=== PATIENT | female | born 1985 | race Two or more races ===

== ENCOUNTER 2022-05-08 01:51 | Day surgery (SDC) | payer OTHER, SELFPAY ==
[2022-04-29 11:29] VITALS: BMI 26.1
--- NOTE | 2022-04-29 11:32 | PC.NURSE ---
Report to the Outpatient Waiting Room, entrance under the green pavilion located off [facility], at time 1100 on date 05/08/22. Planned Procedure Time: 1300. Time changes happen often and if your time is changed the preop area will call you the afternoon before. - You and your visitor will be asked to self-screen and do not enter if you have any COVID symptoms. - Only one visitor is requested with a max of two and NO children visitors are allowed at this time. - The patient visitor may be requested to leave or wait in car when not with patient due to distancing restrictions. - A mask is REQUIRED within the hospital. Patients may have clear liquids (water, carbonated beverages, clear teas, apple juice) until 3 hours prior to surgery with a maximum of 20 ounces. - No food from midnight until time of surgery Take the following medications with a SIP of water the morning of surgery: NONE Medications to discontinue per physician: VITAMINS Date to take last dose: 05/04/22 Please no make-up, nail kosovan, hairspray, perfume, deodorant, or body powder the day of surgery. No jewelry (including any body piercings) or valuables the day of surgery, leave them at home. Please take a shower or bath the night before, or the morning of, surgery with an antibacterial soap. Wear comfortable, loose fitting clothing. - Jewelry must be removed prior to entering the operating room. Rings and piercings that are not removed may be cut off. - The hospital will not accept responsibility for valuables. - Please leave all valuables, including medications, at home the day of surgery. If you are going home after surgery, a licensed class c driver must drive you home. - NO public transportation without another adult if you receive anesthesia. - We recommend that an adult stay with you for 24 hours following discharge. - We also recommend that you do not drive, make important decision, drink alcoholic beverages, or take any drugs that were not prescribed by your health care provider for at least 24 hours after your discharge time. Follow any additional instructions given to you from your surgeon. If you or anyone in your household have experienced Covid symptoms in the past week, please notify your surgeon or the nurse liaison at the phone number below for possible testing. Telephone instructions given to PT - ALBINA KUNZ and asked if any additional questions and then verbalized understanding. Patient advised to call surgeon office or pre surgery nurse liaison [phone] if any additional questions.
--- NOTE | 2022-05-07 09:45 | P.PNAN_ITS ---
Anes - Initial Pre Proc Eval Procedure: Operation Date: 05/08/22 13:00 Proposed Procedures p Bilateral Laparoscopic Salpingectomy - Eric Cutler MD Date/Time: 05/07/22 09:45 Surgeon: Eric Cutler MD Pre Op Diagnosis: Desire Sterilization Patient Data Age: 36 Gender: F Height: 1.65 m Weight: 71.21 kg Allergies Allergy/AdvReac Type Severity Reaction Status Date / Time No Known Allergies Allergy Unknown Other Verified 05/08/22 11:27 Home Medications Medication Instructions Recorded Confirmed Type mecobalamin (vitamin B12) 1,000 1,000 mcg PO DAILY 04/29/22 05/08/22 History mcg chewable tablet (B12 Active) norethindrone 1 mg-ethinyl 1 tablet PO DAILY 04/29/22 05/08/22 History estradiol 20 mcg (21)-iron 75 mg (7) tablet (Blisovi Fe 05/08 (28)) Patient hx anesthesia problems: none Family hx anesthesia problems: none Results Review: All pre-operative results and documents have been reviewed as part of the pre- operative evaluation. [facility] Family History Family History Father Hypertension Cerebrovascular accident Social History Social History Smoking status: Never smoker Alcohol intake: never Substance use: never Substance use type: does not use Living arrangements: with family Additional living arrangements comments: spouse Occupation/Education: 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 Gender identity (if verbalized by the patient): Female Sexual Orientation (if Verbalized by the Patient): Straight or Heterosexual Spiritual care concerns: No Anes - Eval Final PreProcedure Day of Procedure 05/07/22 09:45 Patient weight: overweight Heart: regular rate and rhythm Lungs: clear to auscultation Airway: Mallampati scale class II Neurological: alert and oriented Last oral intake: >/= 8 hours ASA classification: I Emergent: no Anesthetic plan: proceed Anesthesia type and monitoring: general ETT and standard monitoring Results Review: All pre-operative results and documents have been reviewed as part of the pre- operative evaluation. Informed Consent: The patient's anesthetic plan and its attendant risks and benefits were discussed with the patient/family/POA. Questions were solicited and answers provided to the satisfaction of the patient/family/POA.
[2022-05-08] VITALS (8 sets, daily range): BP systolic 118–135; BP diastolic 76–95; PULSE 69–107; RESP 14–18; TEMP 36.2–36.7; O2SAT 100
--- NOTE | 2022-05-08 10:05 | PM.IMHP ---
H&P: HPI History of Present Illness Date/Time: 05/08/22 10:05 Chief Complaint: desires sterilization Narrative: 36-year-old 011 who presents laparoscopic bilateral tubal ligation via salpingectomy.? Patient desires permanent sterilization.? Patient currently takes combined oral contraceptive pills.? Patient states her does not desire any children. Review of Systems Cardiovascular: Cardiovascular: Denies chest pain, Denies leg edema, Denies palpitations, Denies dyspnea and Denies dyspnea on exertion Respiratory: Respiratory: Denies cough, Denies dyspnea and Denies dyspnea on exertion Gastrointestinal: Gastrointestinal: Denies abdominal pain, Denies constipation, Denies diarrhea, Denies nausea and Denies vomiting Genitourinary: Genitourinary: Denies hematuria, Denies urinary frequency, Denies dysuria, Denies pelvic pain, Denies urinary incontinence and Denies vaginal discharge Neurologic: Reports system reviewed and no additional complaints, except as documented Psychiatric: Psychiatric: Reports no additional psychiatric complaints Endocrine: Endocrine: Denies palpitations PMFSH Family History Family History Father Hypertension Cerebrovascular accident Social History Social History Smoking status: Never smoker Alcohol intake: never Substance use: never Substance use type: does not use Living arrangements: with family Additional living arrangements comments: spouse Occupation/Education: 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 Gender identity (if verbalized by the patient): Female Sexual Orientation (if Verbalized by the Patient): Straight or Heterosexual Spiritual care concerns: No Meds Home Medications and Allergies Home Medications Medication Instructions Recorded Confirmed Type mecobalamin (vitamin B12) 1,000 1,000 mcg PO DAILY 04/29/22 04/29/22 History mcg chewable tablet (B12 Active) norethindrone 1 mg-ethinyl 1 tablet PO DAILY 04/29/22 04/29/22 History estradiol 20 mcg (21)-iron 75 mg (7) tablet (Blisovi Fe 05/08 ()) Allergies Allergy/AdvReac Type Severity Reaction Status Date / Time No Known Allergies Allergy Unknown Other Verified 04/29/22 11:28 Exam Const: General: no acute distress Eyes: EOM: EOMs intact bilaterally Neck: Neck: supple Thyroid: thyroid normal Chest: Breast/axilla inspection: normal inspection of the breasts Breast/axilla palpation: normal palpation of the breasts, normal palpation of the axillae and no axillary lymphadenopathy Resp: Effort & Inspection: normal respiratory effort Auscultation: clear to auscultation bilaterally Cardio: Rate: regular rate Rhythm: regular rhythm GI: Inspection: non-distended GI Palp: Yes Soft to palpation, No Tenderness to palpation present (GI) and No Guarding due to palpation present (GI) Auscultation: normal bowel sounds : General: No bladder normal to palpation External Female Exam: normal external appearance Speculum Exam - Vagina: normal vaginal discharge and No vaginal bleeding Speculum Exam - Cervix: nontender Bimanual exam- vagina & uterus: No bladder normal to palpation and No Cervical tenderness present OB/external & speculum: No vaginal bleeding Skin: General skin exam: normal color and no rashes or lesions noted Neuro: Cognition (Neuro): normal cognition Speech: normal speech Extrem: General: normal to inspection and no edema Psych: Mental Status: mental status grossly normal Affect: normal affect Assessment and Plan Assessment and plan (1) Encounter for sterilization: Code(s): Z30.2 - Encounter for sterilization Status: Acute Assessment and Plan: 26-year-old female who presents for laparoscopic bilateral tubal ligation for permanent sterilization Risks, benefits, alternatives discussed Patient c
--- NOTE | 2022-05-08 10:07 | WPDHPUPDATE1 ---
History and Physical Update Update Date/Time: 05/08/22 10:07 History and Physical has been reviewed, including an updated exam of the patient. There are NO changes in the patient's condition. Risks, benefits, and alternatives have been discussed and questions answered. Patient agrees to proceed with procedure.
[2022-05-08] MEDS: ACETAMINOPHEN 500 MG TABLET 1000 MG PO (11:40)
[2022-05-08] MEDS: LACTATED RINGERS 1,000 ML 30 ML IV CONT ×2 (11:50→13:49)
[2022-05-08 11:59] LABS: Hemoglobin 9.9 g/dL (12.0-15.0); Mean Corpuscular HGB Conc 30.9 g/dl (32-36); Mean Corpuscular Hemoglobin 26.2 pg (26-34); Mean Corpuscular Volume 84.7 fl (80-100); Mean Platelet Volume 10.2 fl (7.4-10.4); Platelet Count Result 296 k/mm3 (150-375); Red Blood Count 3.78 M/mm3 (4.2-5.4); Red Cell Distribution Width 12.9 % (11.5-14.5); White Blood Count 5.6 K/mm3 (4.5-10.0)
[2022-05-08] MEDS: KETOROLAC 15 MG/ML VIAL (*BKC) IV PUSH (12:15)
[2022-05-08] MEDS: LIDOCAINE HCL 1% PF 30 ML VIAL 15 ML INFILTRATE (13:23)
--- NOTE | 2022-05-08 13:36 | P.OP_ITS ---
Procedure Note - Detailed Date of Procedure 05/08/22 Pre-op Diagnosis Desire Sterilization Post-op Diagnosis Same Procedure Performed laparoscopic bilateral salpingectomy Surgeon Eric Cutler MD Anesthesia General Indications desires permanent sterilization Findings normal appearing uterus, bilateral fallopian tubes and ovaries Description of Procedure the patient was taken to the operating room where general endotracheal anesthesia was undertaken and found to be adequate. She was then prepped and draped in the dorsal lithotomy position. A pre-operative team brief and time- out were completed. A catheter was placed to drain the bladder. Speculum was placed in the vagina and the cervix was identified. An acorn uterine manipulator was placed as well as single-tooth tenaculum on the anterior lip of the cervix. Attention was then turned to the abdomen which was anesthetized umbilical he with injected anesthetic. A 5 mm skin incision was made in the umbilicus. A 5 mm optical trocar was then placed with direct visualization of the abdominal layers during placement. The trocar stylette was removed and the camera was used to verify intra-abdominal placement.sharon was used to verify intra-abdominal placement. CO2 insufflation was then connected and The abdominal cavity was insufflated. General abdominal and pelvic survey was performed. Two other laparoscopic port site incisions were made approximately 2 cm superior and medial of the ASIS bilaterally. Both fallopian tubes were inspected and identified out to the level of the fimbriae. The Fimbriated end of the left fallopian tube was then grasped with a blunt grasper. the fallopian tube was then transected along its inferior aspect along the mesosalpinx with the LigaSure device. Transection was carried out to the fallopian tubes insertion into the uterine fundus. The fallopian tube was then completely transected from the uterus using the LigaSure device. This procedure was repeated for the right fallopian tube. Good hemostasis was maintained throughout. The transected fgh the 5 mm laparoscopic portrom the abdomen through the 5 mm laparoscopic port. The surgical field was inspected and again could hemostasis was noted. At this point the procedure was ended. The abdomen was desufflated. All laparoscopic ports were removed from the abdomen. Abdominal incisions were closed with 4-0 Vicryl in a subcuticular fashion.. The acorn manipulator and tenaculum weere removed from the vagina. The cervix was inspected and good hemostasis was obtained. Sponge, lap and needle counts were correct. The patient tolerated the procedure well. The patient was taken out of dorsal lithotomy. anesthesia was reversed. The patient was taken to PACU in stable condition. Estimated Blood Loss 5 Urine Output 200 Drains No Packing No Pathology Yes ( Bilateral fallopian tubes) Complications No immediate complications Condition Stable Disposition PACU [facility] Billing Surgery - Charge Forward: Surgery Billing
[2022-05-08] MEDS: oxyCODONE HCL (*CRX) 5 MG TAB IR PO (15:07)
== END 2022-05-08 16:02 | disposition home or self-care (01) ==
PROVIDERS: PCP Family Medicine; Visit Provider Student in an Organized Health Care Education/Training Program
PROC: (CPT 49320; principal; 2022-05-08 13:00)
DX: Z30.2 Encounter for sterilization (principal)
CPT/HCPCS: 58661; 36415; 85027; 88302; A9270; J0330; J1100; J1885; J2250; J2405; J2704; J3010; J7120

== ENCOUNTER 2022-08-17 13:17 | Outpatient (CLI) | payer OTHER, SELFPAY ==
[2022-08-17 13:43] LABS: Hematocrit 32.5 % (37.0-47.0); Hemoglobin 9.9 g/dL (12.0-15.0)
== END 2022-08-17 13:18 | disposition home or self-care (01) ==
LOC: ANHSURGERY 13:21
PROVIDERS: PCP Family Medicine; Visit Provider Student in an Organized Health Care Education/Training Program
DX: N93.9 Abnormal uterine and vaginal bleeding, unspecified (principal)
CPT/HCPCS: 36415; 85014; 85018

== ENCOUNTER 2022-08-21 03:01 | Day surgery (SDC) | payer OTHER, SELFPAY ==
--- NOTE | 2022-08-12 15:00 | SUR.PREOP ---
Report to the Outpatient Waiting Room, entrance under the green pavilion located off [facility], at time 0815 on date 08/21/22. Planned Procedure Time: 1015. Time changes happen often and if your time is changed the preop area will call you the afternoon before. - You and your visitor will be asked to self-screen and do not enter if you have any COVID symptoms. - A mask is optional within the hospital at this time. Patients may have clear liquids (water, carbonated beverages, clear teas, apple juice) until 3 hours prior to surgery with a maximum of 20 ounces. - NO CLEAR LIQUIDS AFTER 0715 - No food from midnight until time of surgery - Infants may have breast milk until 4 hours before surgery, infant formula 6 hours prior to surgery. - Children will be allowed to drink immediately following surgery. If applicable, please bring a bottle or sippy cup to assist with drinking. Juice, water, soda, and popsicles are readily available. For infants on formula, please bring formula the day of surgery. Pacifiers are allowed. Take the following medications with a SIP of water the morning of surgery: N/A DO NOT STOP ANY OF YOUR OTHER PRESCRIPTION MEDICATIONS PRIOR TO SURGERY ?EXCEPT THE FOLLOWING Medications to discontinue per physician VITAMIN Y08 Date to take last dose 08/18/22 Please no make-up, nail moldovan, hairspray, perfume, deodorant, or body powder the day of surgery. No jewelry (including any body piercings) or valuables the day of surgery, leave them at home. Please take a shower or bath the night before, or the morning of, surgery with an antibacterial soap. Wear comfortable, loose fitting clothing. Children are encouraged to wear pajamas. - Jewelry must be removed prior to entering the operating room. Rings and piercings that are not removed may be cut off. - The hospital will not accept responsibility for valuables. - Please leave all valuables, including medications, at home the day of surgery. If you are going home after surgery, a licensed transport driver must drive you home. - NO public transportation without another adult if you receive anesthesia. - We recommend that an adult stay with you for 24 hours following discharge. - We also recommend that you do not drive, make important decision, drink alcoholic beverages, or take any drugs that were not prescribed by your health care provider for at least 24 hours after your discharge time. For Pediatric surgeries, we recommend two adults accompany the child home. Follow any additional instructions given to you from your surgeon. If you or anyone in your household have experienced Covid symptoms in the past week, please notify your surgeon or the nurse liaison at the phone number below for possible testing. Telephone instructions given to ALBINA KUNZ and asked if any additional questions and then verbalized understanding. Patient advised to call surgeon office or pre surgery nurse liaison [phone] if any additional questions.
[2022-08-12 15:13] VITALS: BMI 26.2
--- NOTE | 2022-08-20 11:49 | PM.IMHP ---
H&P: HPI History of Present Illness Date/Time: 08/20/22 11:49 Chief Complaint: abnormal uterine bleeding Narrative: ?36-year-old female who presents for hysteroscopy D&C for abnormal uterine bleeding.? Patient states she has started bleeding again.? Patient is worried that her bleeding will be prolonged and heavy again.? Patient states that she has been told she had a thickened endometrial lining in the past.? Patient was given progesterone at that time which solved her bleeding issues.? Patient is not interested in taking any hormonal contraceptives or pills at this time. Review of Systems Cardiovascular: Cardiovascular: Denies chest pain, Denies leg edema, Denies palpitations, Denies dyspnea and Denies dyspnea on exertion Respiratory: Respiratory: Denies cough, Denies dyspnea and Denies dyspnea on exertion Gastrointestinal: Gastrointestinal: Denies abdominal pain, Denies constipation, Denies diarrhea, Denies nausea and Denies vomiting Genitourinary: Genitourinary: Denies hematuria, Denies urinary frequency, Denies dysuria, Denies pelvic pain, Denies urinary incontinence and Denies vaginal discharge Neurologic: Reports system reviewed and no additional complaints, except as documented Psychiatric: Psychiatric: Reports no additional psychiatric complaints Endocrine: Endocrine: Denies palpitations PMFSH Past Medical History Medical History Abnormal 24-hour urinary cortisol measurement Surgical History Surgical History Hx of bilateral salpingectomy 05/08/2022- laparoscopic bilateral salpingectomy- sterilization - Family History Family History Father Hypertension Cerebrovascular accident Social History Social History Smoking status: Never smoker Alcohol intake: never Substance use: never Substance use type: does not use Living arrangements: with family Additional living arrangements comments: spouse Occupation/Education: 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 Gender identity (if verbalized by the patient): Female Sexual Orientation (if Verbalized by the Patient): Straight or Heterosexual Spiritual care concerns: No Meds Home Medications and Allergies Home Medications Medication Instructions Recorded Confirmed Type mecobalamin (vitamin B12) 1,000 1,000 mcg PO DAILY 04/29/22 08/12/22 History mcg chewable tablet (B12 Active) Allergies Allergy/AdvReac Type Severity Reaction Status Date / Time No Known Allergies Allergy Unknown Other Verified 08/12/22 15:18 Exam Const: General: no acute distress Eyes: EOM: EOMs intact bilaterally Neck: Neck: supple Thyroid: thyroid normal Chest: Breast/axilla inspection: normal inspection of the breasts Breast/axilla palpation: normal palpation of the breasts, normal palpation of the axillae and no axillary lymphadenopathy Resp: Effort & Inspection: normal respiratory effort Auscultation: clear to auscultation bilaterally Cardio: Rate: regular rate Rhythm: regular rhythm GI: Inspection: non-distended GI Palp: Yes Soft to palpation, No Tenderness to palpation present (GI) and No Guarding due to palpation present (GI) Auscultation: normal bowel sounds : General: No bladder normal to palpation External Female Exam: normal external appearance Speculum Exam - Vagina: normal vaginal discharge and No vaginal bleeding Speculum Exam - Cervix: nontender Bimanual exam- vagina & uterus: No bladder normal to palpation and No Cervical tenderness present OB/external & speculum: No vaginal bleeding Skin: General skin exam: normal color and no rashes or lesions noted Neuro: Cognition (Neuro): normal cognition Speech: normal speech Extrem: General: normal to inspection and no edema Psych: Mental
--- NOTE | 2022-08-20 13:32 | P.PNAN_ITS ---
Anes - Initial Pre Proc Eval Procedure: Operation Date: 08/21/22 10:15 Proposed Procedures p Hysteroscopy, Dilation and Curettage - Eric Cutler MD Date/Time: 08/20/22 13:32 Surgeon: Eric Cutler MD Pre Op Diagnosis: abn uterine bleeding Patient Data Age: 36 Gender: F Height: 1.65 m Weight: 71.3 kg Allergies Allergy/AdvReac Type Severity Reaction Status Date / Time No Known Allergies Allergy Unknown Other Verified 08/12/22 15:18 Home Medications Medication Instructions Recorded Confirmed Type mecobalamin (vitamin B12) 1,000 1,000 mcg PO DAILY 04/29/22 08/12/22 History mcg chewable tablet (B12 Active) Patient hx anesthesia problems: none Family hx anesthesia problems: none Results Review: All pre-operative results and documents have been reviewed as part of the pre- operative evaluation. [facility] Past Medical History Medical History Abnormal 24-hour urinary cortisol measurement Surgical History Surgical History Hx of bilateral salpingectomy 05/08/2022- laparoscopic bilateral salpingectomy- sterilization - Family History Family History Father Hypertension Cerebrovascular accident Social History Social History Smoking status: Never smoker Alcohol intake: never Substance use: never Substance use type: does not use Living arrangements: with family Additional living arrangements comments: spouse Occupation/Education: 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 Gender identity (if verbalized by the patient): Female Sexual Orientation (if Verbalized by the Patient): Straight or Heterosexual Spiritual care concerns: No Anes - Eval Final PreProcedure Day of Procedure 08/20/22 13:32 Patient weight: overweight Heart: regular rate and rhythm Lungs: clear to auscultation Airway: Mallampati scale class II Neurological: alert and oriented Last oral intake: >/= 8 hours ASA classification: II Emergent: no Anesthetic plan: proceed Anesthesia type and monitoring: general GIVS and LMA and standard monitoring Results Review: All pre-operative results and documents have been reviewed as part of the pre- operative evaluation. Informed Consent: The patient's anesthetic plan and its attendant risks and benefits were discussed with the patient/family/POA. Questions were solicited and answers provided to the satisfaction of the patient/family/POA.
--- NOTE | 2022-08-21 09:24 | WPDHPUPDATE1 ---
History and Physical Update Update Date/Time: 08/21/22 09:24 History and Physical has been reviewed, including an updated exam of the patient. There are NO changes in the patient's condition. Risks, benefits, and alternatives have been discussed and questions answered. Patient agrees to proceed with procedure.
[2022-08-21 09:45] VITALS: BP 129/85; PULSE 67; RESP 14; TEMP 36.2; O2SAT 100
[2022-08-21] MEDS: LACTATED RINGERS 1,000 ML 30 ML IV CONT (09:45)
[2022-08-21] MEDS: ACETAMINOPHEN 500 MG TABLET 1000 MG PO (09:52)
[2022-08-21] MEDS: KETOROLAC 30 MG/ML VIAL (*BKC) IV PUSH (10:50)
[2022-08-21 10:57] VITALS: BP 119/85; PULSE 76; RESP 12; O2SAT 98
--- NOTE | 2022-08-21 11:02 | W.PM.PROC2 ---
Procedure Note - Detailed Date of Procedure 08/21/22 Pre-op Diagnosis abn uterine bleeding Post-op Diagnosis Same Procedure Performed hysteroscopy dilation & curettage Surgeon Eric Cutler MD Anesthesia General Indications abnormal uterine bleeding Findings globally thickened endomterium, normal tubal ostia bilaterally Description of Procedure Reina Avery presents for hysteroscopy D&C for AUB. She was counseled as to the indications, risks, benefits, and alternatives to surgery, with the risks including bleeding, infection, damage to surrounding organs, VTE, and complications of anesthesia. Her verbal and written consent was obtained. PROCEDURE: The patient was taken to the OR and general anesthesia induced. She was prepped and draped in Maximino stirrups with support of the back and bilateral lower extremities. I/O catheterization performed of the bladder. The above findings were noted. A single tooth tenaculum was placed on the anterior lip of the cervix. The cervix was dilated with sequential Marjorie dilators. Hysteroscopy, using a normal saline medium, was performed and showed the above findings. Sharp uterine curettage was then performed and tissue placed on Telfa. The tenaculum was removed and hemostasis was observed. The patient tolerated the procedure well. The patient was taken to the recovery room in stable condition. Estimated Blood Loss 10 Urine Output 250 Drains No Packing No Pathology Yes (endometrial curettings ) Complications No immediate complications Condition Stable Disposition PACU [facility] Billing Surgery - Charge Forward: Surgery Billing
[2022-08-21 11:25] VITALS: BP 117/80; PULSE 65; RESP 12; O2SAT 100
== END 2022-08-21 12:02 | disposition home or self-care (01) ==
PROVIDERS: PCP Family Medicine; Visit Provider Student in an Organized Health Care Education/Training Program
PROC: 0U5B8ZZ Destruction of Endometrium, Via Natural or Artificial Opening Endoscopic (ICD-10-PCS; CPT 58563; principal; 2022-08-21 10:15)
DX: N93.9 Abnormal uterine and vaginal bleeding, unspecified (principal)
CPT/HCPCS: 58558; 88305; A9270; J1885; J2250; J2405; J2704; J3010; J7120

== ENCOUNTER 2025-02-27 11:41 | Emergency (ER) | payer OTHER, SELFPAY ==
--- NOTE | ~2025-02-27 | US_ITS ---
EXAM/PROCEDURE: US pelvic complete w TV HISTORY: abnormal uterine bleeding COMPARISON: None available. TECHNIQUE: Transvaginal pelvic ultrasound LMP: January 16, 2025 FINDINGS: The uterus measures 8.2 x 4.3 x 5.8 cm. Small echogenic focus noted in the uterus/cervical region. Endometrial stripe of 7.7 mm Right ovary: 2.5 x 0.9 x 2.1 cm. The margins of the right ovary are limited in evaluation due to bowel gas. Vascular flow appears to be intact. Left ovary: 2.8 x 2.5 x 2.1 cm and appears normal vascular flow. 2.4 cm simple appearing cyst in the left ovary. No free fluid seen. IMPRESSION: Borderline thickened and mildly heterogeneous appearance of the endometrial stripe with echogenic focus possibly representing small amount of blood or calcification. Correlate clinically; if endometritis is a clinical exam, short interval follow-up pelvic ultrasound is recommended. Reviewed, dictated and finalized at location [employer] IMPRESSION: Borderline thickened and mildly heterogeneous appearance of the endometrial str ipe with echogenic focus possibly representing small amount of blood or calcifi cation. Correlate clinically; if endometritis is a clinical exam, short interva l follow-up pelvic ultrasound is recommended.
[2025-02-27 11:43] VITALS: BP 157/98; PULSE 90; RESP 16; TEMP 36.6; O2SAT 98
[2025-02-27 12:23] VITALS: BP 155/98; PULSE 77; RESP 16; TEMP 36.6; O2SAT 100
--- NOTE | 2025-02-27 14:21 | PC.NURSE ---
Pt. pressed call light, which this RN answered. Pt. daughter at bedside. Pt. verbalized frustration about wait time to see a provider. Pt. updated that a provider has signed up for her, she is just waiting for that provider to come in. All questions answered at this time.
[2025-02-27 15:05] LABS: BEDSIDEPREGUCG Negative (Negative)
[2025-02-27 15:06] LABS: Hematocrit 38.2 % (37.0-47.0); Hemoglobin 12.1 g/dL (12.0-15.0); Immature Granulocyte Percent A 0.2 % (0-0.5); Lymphocytes Absolute Auto 1.62 K/mm3 (0.9-3.2); Mean Corpuscular HGB Conc 31.7 g/dl (32-36); Mean Corpuscular Hemoglobin 27.9 pg (26-34); Mean Corpuscular Volume 88.0 fl (80-100); Nucleated Red Blood Cells Absolute Auto 0.000 K/mm3 (0.0-0.012); Nucleated Red Blood Cells Perc 0.0 % (0.0-0.2); Platelet Count Result 235 k/mm3 (150-375); Red Blood Count 4.34 M/mm3 (4.2-5.4); White Blood Count 5.5 K/mm3 (4.5-10.0)
[2025-02-27 15:13] LABS: Non Pathogenic Casts 0-2
[2025-02-27 15:17] LABS: INR 1.0; Prothrombin Time 13.0 Seconds (11.1-14.7)
[2025-02-27 15:18] LABS: Add Urine Microscopic? YES; Appearance Urine Cloudy (Clear); Glucose Urine UA Negative (Negative); Leukocyte Esterase Ur Trace LEU/UL (Negative); Nitrate Urine Negative (Negative); Partial Thromboplastin Time 28.8 Seconds (22.3-36.8); Specific Grav Ur 1.019 (1.001-1.035)
[2025-02-27 15:30] VITALS: BP 153/97; PULSE 74; RESP 16; O2SAT 99
[2025-02-27 15:41] LABS: Alanine Aminotransferase 17 U/L (6-35); Albumin Level 4.4 g/dL (3.5-5.1); Alkaline Phosphatase 53 U/L (38-126); Anion Gap 7 mmol/L (4-12); Aspartate Amino Transferase 32 U/L (14-36); Bilirubin,Total 0.5 mg/dL (0.2-1.3); Blood Urea Nitrogen 13 mg/dL (7-17); Calcium 8.8 mg/dL (8.4-10.2); Carbon Dioxide 23 mmol/L (22-30); Chloride 106 mmol/L (98-107); Estimated CRCL calculation 121 ml/min; Estimated Glomerular Filt Rate > 60; Glucose 119 mg/dL (65-110); Potassium 3.4 mmol/L (3.4-5.0); Sodium 136 mmol/L (137-145); Total Protein 7.6 g/dL (6.3-8.2)
--- NOTE | 2025-02-27 16:24 | PC.NURSE ---
Pt returned from [facility]
--- NOTE | 2025-02-27 16:50 | ED.GENADULT ---
HPI - General Adult General Chief complaint: Vaginal Bleeding Stated complaint: vaginal bleeding Time Seen by Provider: 02/27/25 12:50 History of Present Illness HPI narrative: 39-year-old female presenting with heavy vaginal bleeding. Patient states her last menstrual period started January 15 and continued for the next month. She reports intermittent lightheadedness. She was then put on oral contraception and the bleeding stopped. Shortly thereafter she began spotting and then last night had heavy vaginal bleeding again and she reports passing large clots. She is changing a pad every 2 hours and is having RLQ abdominal pain that radiates to her back. Patient endorses that she had her tubes tied many years ago. She sees Dr. Cutler for OBGYN and she was due for ultrasound tomorrow for further evaluation. Denies dysuria, nausea/vomiting/diarrhea, dizziness, LOC, chest pain/shortness of breath. Paps up-to-date and no concern for STDs. Related Data Allergies Allergy/AdvReac Type Severity Reaction Status Date / Time No Known Allergies Allergy Verified 02/27/25 11:48 Review of Systems Review of Systems: All systems reviewed & are unremarkable except as noted in HPI and below Exam Narrative: GENERAL: Well-appearing, well-nourished, and in no acute distress. HEAD: Normocephalic, atraumatic. EYES: PERRLA and EOMI. ENT: Nares clear, no rhinorrhea or epistaxis. Mucous membranes moist. Oropharynx without tonsillar hypertrophy exudate or other lesions. Bilateral TMs pearly felix non-bulging NECK: Supple. No adenopathy or masses. No carotid bruits or JVD CHEST: Clear to auscultation. No respiratory distress. No wheezes rales or rhonchi HEART: Regular rate and rhythm. No murmur heard. Normal peripheral pulses. ABDOMEN: Mild RLQ tenderness, nondistended, normal active bowel sounds. EXTREMITIES: Normal range of motion. No edema. SKIN: Warm, dry, no rash. NEURO: No focal deficits. Alert and oriented x3. PSYCH: Normal mood and affect Course Vital Signs Vital signs: Vital Signs Temperature 97.9 F 02/27/25 11:43 Pulse Rate 90 02/27/25 11:43 Respiratory Rate 16 02/27/25 11:43 Blood Pressure 157/98 H 02/27/25 11:43 Pulse Oximetry 98 02/27/25 11:43 Oxygen Delivery Room Air 02/27/25 11:43 Temperature 98 F 02/27/25 12:23 Pulse Rate 75 02/27/25 17:45 Respiratory Rate 16 02/27/25 17:45 Blood Pressure 150/106 H 02/27/25 17:45 Pulse Oximetry 100 02/27/25 17:45 Oxygen Delivery Room Air 02/27/25 11:43 Medical Decision Making MDM Narrative Medical decision making narrative: 39-year-old female presenting with heavy vaginal bleeding. Patient states her last menstrual period started January 15 and continued for the next month. She reports intermittent lightheadedness. She was then put on oral contraception and the bleeding stopped. Shortly thereafter she began spotting and then last night had heavy vaginal bleeding again and she reports passing large clots. She is changing a pad every 2 hours and is having RLQ abdominal pain that radiates to her back. Patient endorses that she had her tubes tied many years ago. She sees Dr. Cutler for OBGYN and she was due for ultrasound tomorrow for further evaluation. Denies dysuria, nausea/vomiting/diarrhea, dizziness, LOC, chest pain/shortness of breath. Paps up-to-date and no concern for STDs. H&H stable. CMP within normal limits. UA demonstrated hematuria. TVUS demonstrated borderline thickened and mildly heterogeneous appearance of the endometrial stripe with echogenic focus possibly representing small amount of blood or calcification. Instructed to correlate clinically; if endometritis is a clinical exam, short interval follow-up pelvic ultrasound is recommended. Spoke with Dr. Mata with OBGYN who recommended doubling up daily on her already prescribed Norethindrone until she is able to see Dr. Cutler again for continued evaluation and care. Patient agrees with discussion and after shared medical decision making agrees with plan of care. All questions were answered to the patient's satisfaction. The patient is appropriate for outpatient treatment and follow-up. Given reasons to return. Medical Records Medical records reviewed: Yes I reviewed the external patient's medical records. Vital Signs Vital Signs: Vital Signs Temperature 97.9 F 02/27/25 11:43 Pulse Rate 90 02/27/25 11:43 Respiratory Rate 16 02/27/25 11:43 Blood Pressure 157/98 H 02/27/25 11:43 Pulse Oximetry 98 02/27/25 11:43 Oxygen Delivery Room Air 02/27/25 11:43 Temperature 98 F 02/27/25 12:23 Pulse Rate 75 02/27/25 17:45 Respiratory Rate 16 02/27/25 17:45 Blood Pressure 150/106 H 02/27/25 17:45 Pulse Oximetry 100 02/27/25 17:45 Oxygen Delivery Room Air 02/27/25 11:43 Lab Data Lab results reviewed: Yes I reviewed the patient's lab results. 02/27/25 15:00 02/27/25 15:00 Labs: Lab Results 02/27/25 02/27/25 Range/Units 15:00 15:02 WBC 5.5 (4.5-10.0) K/mm3 RBC 4.34 (4.2-5.4) M/mm3 Hgb 12.1 (12.0-15.0) g/dL Hct 38.2 (37.0-47.0) % MCV 88.0 (80-100) fl MCH 27.9 (26-34) pg MCHC 31.7 L (32-36) g/dl RDW 17.1 H (11.5-14.5) % Plt Count 235 (150-375) k/mm3 MPV 9.8 (7.4-10.4) fl Immature Gran % (Auto) 0.2 (0-0.5) % Neut % (Auto) 61.0 (45.5-73.1) % Lymph % (Auto) 29.3 (18.3-44.2) % [place] % (Auto) 7.2 (2.6-8.5) % Eos % (Auto) 1.8 (0-4.4) % Baso % (Auto) 0.5 (0.2-1.2) % Lymph # (Auto) 1.62 (0.9-3.2) K/mm3 [place] # (Auto) 0.4 (0.1-0.6) K/mm3 Eos # (Auto) 0.1 (0-0.3) K/mm3 Baso # (Auto) 0.0 (0.0-0.1) K/mm3 Abs Immat Gran (auto) 0.01 (0.00-0.031) K/mm3 Absolute Neuts (auto) 3.4 (1.3-6.7) K/mm3 Absolute Nucleated RBC 0.000 (0.0-0.012) K/mm3 Nucleated RBC % 0.0 (0.0-0.2) % PT 13.0 (11.1-14.7) Seconds INR 1.0 APTT 28.8 (22.3-36.8) Seconds Sodium 136 L (137-145) mmol/L Potassium 3.4 (3.4-5.0) mmol/L Chloride 106 (98-107) mmol/L Carbon Dioxide 23 (22-30) mmol/L Anion Gap 7 (4-12) mmol/L BUN 13 (7-17) mg/dL Creatinine 0.48 L (0.7-1.0) mg/dL Estim Creat Clear Calc 121 ml/min Estimated GFR > 60 (59 - ) Glucose 119 H (65-110) mg/dL Calcium 8.8 (8.4-10.2) mg/dL Total Bilirubin 0.5 (0.2-1.3) mg/dL AST 32 (14-36) U/L ALT 17 (6-35) U/L Alkaline Phosphatase 53 (38-126) U/L Total Protein 7.6 (6.3-8.2) g/dL Albumin 4.4 (3.5-5.1) g/dL Urine Color Light red H (Yellow) Urine Appearance Cloudy H (Clear) Urine pH 7.0 (5.0-9.0) Ur Specific Wendel 1.019 (1.001-1.035) Urine Protein Trace (Negative) mg/dL Urine Glucose (UA) Negative (Negative) mg/dL Urine Ketones Negative (Negative) mg/dL Ur Blood (Man) 3+ H (Negative) Urine Nitrate Negative (Negative) Urine Bilirubin Negative (Negative) Urine Urobilinogen 0.2 (<2.0) mg/dL Leukocyte Esterase Rfl Trace H (Negative) CASE/UL Urine RBC >100 H (0-2) /hpf Urine WBC 0-5 (0-3) /hpf Ur Squamous Epith Cells None seen (Few) /hpf Urine Bacteria None seen /hpf Urine Casts 0-2 POC Urine HCG, Qual Negative (Negative) Blood Type B Positive Antibody Screen Negative Imaging Data Attestation: I personally reviewed and interpreted this imaging study as follows: Radiologist's impression: ITS Impressions Pelvic/Transvag US 02/27/25 16:38 IMPRESSION: Borderline thickened and mildly heterogeneous appearance of the endometrial stripe with echogenic focus possibly representing small amount of blood or calcification. Correlate clinically; if endometritis is a clinical exam, short interval follow-up pelvic ultrasound is recommended. Critical Care Time Critical Care Time Critical Care Time: No Discharge Plan Discharge Clinical Impression: Vaginal bleeding Patient Disposition: Home Condition: Stable Instructions: Abnormal (Dysfunctional) Uterine Bleeding (ED) Additional Instructions: Take any prescribed medications exactly as directed. Do not stop medications early, even if bleeding improved. Track your bleeding: Number pads/tampons, clots size, and duration. Stay hydrated and rest if you feel tired or dizzy. Return to ED if you are soaking pads/tampon every hour for several hours, passing large clots (bigger than a quarter), feeling dizzy, faint, short breath, fever, severe abdominal pain, or foul-smelling discharge. Follow-up closely with your OBGYN for further treatment and care. Take your Noethindrone twice per day every 12 hours until you see OBGYN. Patient Language: Georgian Follow-up/Referrals: Eric Cutler MD [Primary Care Provider, RIPPER OPERATOR]
[2025-02-27 17:45] VITALS: BP 150/106; PULSE 75; RESP 16; O2SAT 100
== END 2025-02-27 17:48 | disposition home or self-care (01) ==
PROVIDERS: PCP Student in an Organized Health Care Education/Training Program
DX: N93.9 Abnormal uterine and vaginal bleeding, unspecified (principal)
CPT/HCPCS: 36415; 76830; 76856; 80053; 81001; 81025; 85025; 85610; 85730; 86850; 86900; 86901; 99284

== ENCOUNTER 2025-03-13 00:51 | Day surgery (SDC) | payer OTHER, SELFPAY ==
[2025-03-06 10:34] VITALS: BMI 26.2
--- NOTE | 2025-03-06 10:36 | PC.NURSE ---
[facility] has started construction of its new state of the art ER which will open Spring 2026. With this, we anticipate parking may be a challenge for some our surgical patients and families. Parking spaces are limited but are available for all Surgical, obstetrics, and ER patients sharing this lot. If you arrive and find you are having a hard time finding a parking space, please note that we understand the challenges, please drive around the hospital and park near Hospital Entrance 1. When you enter this entrance, you can ask a volunteer to direct or take you back to the surgical waiting area to check in. We appreciate everyone?s understanding of these expected challenges while we build for your future. Report to the Outpatient Waiting Room, entrance under the green pavilion located off [address], at time _1130_ on date _03-13-25_. Planned Procedure Time: _130pm_.? Time changes happen often and if your time is changed the preop area will call you the afternoon before. - You and your visitor will be asked to self-screen and do not enter if you have any COVID symptoms. Please call surgeon if you need to reschedule. - A mask is optional within the hospital at this time. Patients may have clear liquids (water, carbonated beverages, clear teas, apple juice) until 3 hours prior to surgery with a maximum of 20 ounces. - No food from midnight until time of surgery and no smoking, or chewing tobacco (or any form of nicotine). No chewing gum, candy or mints. Take only the following medications with a SIP of water on the morning of surgery: __birth control pill____ DO NOT STOP ANY OF YOUR OTHER PRESCRIPTION MEDICATIONS PRIOR TO SURGERY EXCEPT THE FOLLOWING Hold all vitamins and supplements for 3 days per anesthesiologist. Medications to discontinue per physician Date to take last dose____ Please no make-up, nail kinyarwanda, hairspray, perfume, deodorant, or body powder the day of surgery.? No jewelry (including any body piercings) or valuables the day of surgery, leave them at home.? Please take a shower or bath the night before, or the morning of, surgery with an antibacterial soap.? Wear comfortable, loose fitting clothing.? - Jewelry must be removed prior to entering the operating room.? Rings and piercings that are not removed may be cut off. - The hospital will not accept responsibility for valuables.? - Please leave all valuables, including medications, at home the day of surgery. If you are going home after surgery, a licensed milk pickup driver must drive you home.? - NO public transportation without another adult if you receive anesthesia. - We recommend that an adult stay with you for 24 hours following discharge. - We also recommend that you do not drive, make important decision, drink alcoholic beverages, or take any drugs that were not prescribed by your health care provider for at least 24 hours after your discharge time. Follow any additional instructions given to you from your surgeon. Telephone instructions given to __Shital__and asked if any additional questions and then verbalized understanding. Patient advised to call surgeon office or pre surgery nurse liaison [phone] if any additional questions.
--- NOTE | 2025-03-12 17:25 | P.HP_ITS ---
H&P: HPI History of Present Illness Date/Time: 03/12/25 17:25 Chief Complaint: abnormal uterine bleeding Narrative: ?39-year-old female who presents for hysteroscopy D&C and endometrial ablation for abnormal uterine bleeding. patient has a longstanding history of abnormal uterine bleeding. Patient's bleeding is nonresponsive to hormonal contraceptives. Review of Systems Cardiovascular: Cardiovascular: Denies chest pain, Denies leg edema, Denies palpitations, Denies dyspnea and Denies dyspnea on exertion Respiratory: Respiratory: Denies cough, Denies dyspnea and Denies dyspnea on exertion Gastrointestinal: Gastrointestinal: Denies abdominal pain, Denies constipation, Denies diarrhea, Denies nausea and Denies vomiting Genitourinary: Genitourinary: Denies hematuria, Denies urinary frequency, Denies dysuria, Denies pelvic pain, Denies urinary incontinence and Denies vaginal discharge Neurologic: Reports system reviewed and no additional complaints, except as documented Psychiatric: Psychiatric: Reports no additional psychiatric complaints Endocrine: Endocrine: Denies palpitations PMFSH Past Medical History Medical History Abnormal 24-hour urinary cortisol measurement Surgical History Surgical History History of hysteroscopy D & C Hx of bilateral salpingectomy 05/08/2022- laparoscopic bilateral salpingectomy- sterilization - Family History Family History Father Hypertension Cerebrovascular accident Social History Social History Smoking status: Never smoker Alcohol intake: never Substance use: never Substance use type: does not use Living arrangements: with family Additional living arrangements comments: spouse Occupation/Education: 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 Gender identity (if verbalized by the patient): Female Sexual Orientation (if Verbalized by the Patient): Straight or Heterosexual Spiritual care concerns: No Meds Home Medications and Allergies Home Medications ?Medication ?Instructions ?Recorded ?Confirmed ?Type ferrous sulfate 325 mg (65 mg 325 mg PO DAILY 02/09/25 03/06/25 History iron) tablet (FeroSul) norethindrone (contraceptive) 0.35 0.35 mg PO DAILY #8 4 tabs 02/28/25 03/06/25 Rx mg tablet (Gudelia) Allergies Allergy/AdvReac Type Severity Reaction Status Date / Time No Known Allergies Allergy Unknown Other Verified 03/06/25 10:25 Exam Const: General: no acute distress Eyes: EOM: EOMs intact bilaterally Neck: Neck: supple Thyroid: thyroid normal Chest: Breast/axilla inspection: normal inspection of the breasts Breast/axilla palpation: normal palpation of the breasts, normal palpation of the axillae and no axillary lymphadenopathy Resp: Effort & Inspection: normal respiratory effort Auscultation: clear to auscultation bilaterally Cardio: Rate: regular rate Rhythm: regular rhythm GI: Inspection: non-distended GI Palp: Yes Soft to palpation, No Tenderness to palpation present (GI) and No Guarding due to palpation present (GI) Auscultation: normal bowel sounds : General: No bladder normal to palpation External Female Exam: normal external appearance Speculum Exam - Vagina: normal vaginal discharge and No vaginal bleeding Speculum Exam - Cervix: nontender Bimanual exam- vagina & uterus: No bladder normal to palpation and No Cervical tenderness present OB/external & speculum: No vaginal bleeding Skin: General skin exam: normal color and no rashes or lesions noted Neuro: Cognition (Neuro): normal cognition Speech: normal speech Extrem: General: normal to inspection and no edema Psych: Mental Status: mental status grossly normal Affect: normal affect Assessment and Plan Assessment and plan (1) Abnormal uterine bleeding (AUB): Code(s): N93.9 - Abnormal uterine and vaginal bleeding, unspecified Status: Acute Assessment and Plan: 39-year-old female who presents with complaints of abnormal uterine bleeding Patient has a long history of menorrhagia Patient underwent hysteroscopy D&C in 2022 with benign endometrium Abnormal bleeding was previously controlled on progesterone only pills, recently seen in the ER for heavy breakthrough bleeding Patient has previously had tubal ligation for contraception Discussed management options of AUB Discussed endometrial ablation versus hysterectomy Risks, benefits reviewed Patient wishes to proceed with endometrial ablation
--- OUTSIDE RECORDS SUMMARY | 2025-03-13 00:54 | XMS_ITS | Encounter Summary ---
Author Organization [facility] Address [address] [place] [id number] Care Team Providers Care Machine Designer Name Role Phone Ricardo Paulino MD Primary Care Provider [phone] Encounter Details Date Type Department Care Team (Late st Contact Info) Description 09/06/2023 [employer] Message Enc [facility] - [address] [place] [address] [employer], [facility] Provider Lab results Social History Tobacco Use Types Packs/Day Years Used Date Smoking Tobacco: Never Smokeless Tobacco: Never Alcohol Use Standard Drinks/Week Comments No 0 (1 standard drink = 0.6 oz pur e alcohol) AUDIT-C Answer Date Recorded Q1: How often do you have a drink containing alcohol? Never 08/31/2023 Q2: How many drinks containi ng alcohol do you have on a typical day when you are drinking? Patient does not drink Q3: How often do you have si x or more drinks on one occasion? Never 08/31/2023 PHQ-2 Answer Date Recorded Patient Health Questionnaire-2 Score 0 08/31/2023 Comments No Sex and Gender Information Value Date Recorded Sex Assigned at Female 10/11/2024 2:51 PM CDT Legal Sex Female 7:37 PM CDT Gender Identity Female 10/11/2024 2:51 PM CDT Sexual Orientation Not on file documented as of this encounter Plan of Treatment Not on file documented as of this encounter Visit Diagnoses Not on filedocumented in this encounter Care Teams Machine Designer Relationship Specialty Start Date End Date Ricardo Paulino MD [address] [facility] [address] [place] [address] PCP - General INTERNAL MEDICINE 09/21/22 documented as of this encounter
--- OUTSIDE RECORDS SUMMARY | 2025-03-13 00:54 | XMS_ITS | Encounter Summary ---
Author Organization [facility] Address [address] [place] [address] Care Team Providers Care Flower Cheniller Name Role Phone Ricardo Paulino MD Primary Care Provider [phone] Encounter Details Date Type Department Care Team (Late st Contact Info) Description 01/31/2025 Results Follow-Up [facility] [address] [place] [address] Ricardo Paulino MD [address] [facility] [address] [place] [address] Pathology Social History Tobacco Use Types Packs/Day Years Used Date Smoking Tobacco: Never Smokeless Tobacco: Never Comments:Counseled by Dr. Gaby cameron. Alcohol Use Standard Drinks/Week Comments Never 0 (1 standard drink = 0.6 oz pur e alcohol) B1300 Health Literacy Answer Date Recor ded How often do you need to hav e someone help you when you read instructions, pamphlets, or other written material from your doctor or pharmacy? Never 09/13/2024 [facility] Utilities Answer Date Recorded In the past 12 months has e electric, gas, oil, or water Create threatened to shut off services in your home? No 09/13/2024 Humiliation, Afraid, Rape, and Kick questionnair e Answer Date Recorded Within the last year, have y ou been afraid of your partner or ex-partner? No 09/13/2024 Within the last year, have y ou been humiliated or emotionally abused in other ways by your partner or ex-partner? No Within the last year, have y ou been kicked, hit, slapped, or otherwise physically hurt by your partner or ex-partner? No 09/13/2024 Within the last year, have y ou been raped or forced to have any kind of sexual activity by your partner or ex-partner? No 09/13/2024 Social Connection and Isolation Panel Answer Date Recorded In a typical week, how many times do you talk on the phone with family, friends, or neighbors? More than three times a week 09/13/2024 How often do you get togethe r with friends or relatives? More than three times a week 09/13/2024 How often do you attend chur or christian services? Patient declined 09/13/2024 Do you belong to any clubs o r organizations such as confucianism groups, unions, fraternal or athletic groups, or school groups? Patient declined 09/13/2024 How often do you attend meet ings of the clubs or organizations you belong to? Patient declined 09/13/2024 Are you , , di vorced, , never , or living with a partner? 09/13/2024 AUDIT-C Answer Date Recorded Q1: How often do you have a drink containing alcohol? Never 09/13/2024 Q2: How many drinks containi ng alcohol do you have on a typical day when you are drinking? Patient does not drink Q3: How often do you have si x or more drinks on one occasion? Never 09/13/2024 Overall Financial Resource Strain (CARDIA) Answe r Date Recorded How hard is it for you to pa y for the very basics like food, housing, medical care, and heating? Not very hard 09/13/2024 PHQ-2 Answer Date Recorded Patient Health Questionnaire-2 Score 0 09/13/2024 [facility]ational Stress Questionnaire Answer Date Recorded Do you feel stress - tense, restless, nervous, or anxious, or unable to sleep at night because your mind is troubled all the time - these days? Not at all 09/13/2024 Exercise Vital Sign Answer Date Recorde d On average, how many days pe r week do you engage in moderate to strenuous exercise (like a brisk walk)? 7 days 09/13/2024 On average, how many minutes do you engage in exercise at this level? 50 min 09/13/2024 Hunger Vital Sign Answer Date Recorded Within the past 12 months, y ou worried that your food would run out before you got the money to buy more. Patient declined Within the past 12 months, t he food you bought just didn't last and you didn't have money to get more. Patient declined PRAPARE - Transportation Answer Date Re corded In the past 12 months, has l ack of transportation kept you from medical appointments or from getting medications? No 08/18 In the past 12 months, has l ack of transportation kept you from meetings, work, or from getting things needed for daily living? No 09/13/2024 Housing Stability Vital Sign Answer Rocky e Recorded In the last 12 months, was t here a time when you were not able to pay the mortgage or rent on time? No 09/13/2024 Number of Times Moved in the Last Year Not on fi le 09/13/2024 At any time in the past 12 m [facility], were you homeless or living in a fpc (including now)? No 09/13/2024 Comments No Sex and Gender Information Value Date Recorded Sex Assigned at Female 10/11/2024 2:51 PM CDT Legal Sex Female 7:37 PM CDT Gender Identity Female 10/11/2024 2:51 PM CDT Sexual Orientation Not on file documented as of this encounter Plan of Treatment Not on file documented as of this encounter Visit Diagnoses Not on filedocumented in this encounter Care Teams Flower Cheniller Relationship Specialty Start Date End Date Ricardo Paulino MD [address] [facility] [address] [place] [address] PCP - General INTERNAL MEDICINE 09/21/22 documented as of this encounter
--- OUTSIDE RECORDS SUMMARY | 2025-03-13 00:54 | XMS_ITS | Encounter Summary ---
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 Role Phone Ricardo Paulino MD Primary Care Provider [phone] Encounter Details Date Type Department Care Team (Latest Contact Info) Description 01/25/2025 Results Follow-Up [facility] - [place] [address] [address] [place] [address] Ricardo Paulino MD [address] [place] [address] [address] [place] [address] MG SCREENING W LUBA NIA DIGI, CBC W/DIFF AUTOMATED, BLOOD SMEAR PERIPHERAL INTERP PHYS W/WRIT REPORT, Additional followed-up results: 5 Social History Tobacco Use Types Packs/Day Years Used Date Smoking Tobacco: Never Smokeless Tobacco: Never Comments:Counseled by Dr. Gaby cameron. Alcohol Use Standard Drinks/Week Comments No 0 (1 standard drink = 0.6 oz pur e alcohol) B1300 Health Literacy Answer Date Recor ded How often do you need to hav e someone help you when you read instructions, pamphlets, or other written material from your doctor or pharmacy? Never 09/13/2024 [facility] Utilities Answer Date Recorded In the past 12 months has e electric, gas, oil, or water company threatened to shut off services in your [...] How often do you attend chur or pentecostalism services? Patient declined 09/13/2024 Do you belong to any clubs o r organizations such as catholic groups, unions, fraternal or athletic groups, or [...] Recorded Patient Health Questionnaire-2 Score 0 09/13/2024 [facility] - Occupational Stress Questionnaire Answer [...] any time in the past 12 m [facility], were you homeless or living in a [facility]p (including now)? No 09/13/2024 Comments No Sex and Gender Information Value Date Recorded Sex Assigned at Female 10/11/2024 2:51 PM CDT Legal Sex Female 7:37 PM CDT Gender Identity Female 10/11/2024 2:51 PM CDT Sexual Orientation Not on file documented as of this encounter Plan of Treatment Not on file documented as of this encounter Visit Diagnoses Diagnosis Iron deficiency anemia, unspecified iron deficiency anemia type- Primary documented in this encounter Care Teams Boat Outboard Engine Mechanic Relationship Specialty Start Date End Date Ricardo Paulino MD [address] [address] PCP - General INTERNAL MEDICINE 09/21/22 documented as of this encounter
--- OUTSIDE RECORDS SUMMARY | 2025-03-13 00:54 | XMS_ITS | Continuity of Care Document ---
Author Organization [facility] Address [address] [place] [address] Care Team Providers Care Export Sales Manager Name Role Phone Ricardo Paulino MD Primary Care Provider [phone] Encounters Date Type Department Care Team Description 02/01/2025 Telephone [place] [address] [facility] [address] [place] [address] Ricardo Paulino MD Information 01/31/2025 Results Follow-Up [facility] [address] [place] [address] Ricardo Paulino MD Pathology 01/30/2025 9:15 AM CDT - 01/30/2025 11:59 PM CDT Hospital Encounter [facility] [address] [place] [address] Ricardo Paulino MD Discharge Disposition: Home or Self Care (Routine Discharge) 01/30/2025 - 01/30/2025 11:59 PM CDT Hospital Encounter [facility] [address] [place] [address] Ricardo Paulino MD Discharge Disposition: Home or Self Care (Routine Discharge) 01/30/2025 Travel 01/30/2025 11:40 AM CDT Office Visit [address] [place] [address] Ricardo Paulino MD Bleeding (Vaginal) (Started jan 16 ongoing 14 days) 01/25/2025 Results Follow-Up [address] [place] [address] Ricardo Paulino MD MG SCREENING W LUBA NIA DIGI, CBC W/DIFF AUTOMATED, BLOOD SMEAR PERIPHERAL INTERP PHYS W/WRIT REPORT, Additional followed-up results: 5 01/25/2025 Travel 01/25/2025 1:35 PM CDT - 01/25/2025 11:59 PM CDT Hospital Encounter [facility] [address]ammography [address] [place] [address] Ricardo Pauilno MD Discharge Disposition: Home or Self Care (Routine Discharge) 10/30/2024 Travel 10/30/2024 2:00 PM CDT Office Visit [facility] Physical Therapy [address] [place] [address] [address] [place] [address] Ricardo Paulino MD Weedon, Meaghan B, PT Urinary Incontinence 10/11/2024 Travel 10/11/2024 2:40 PM CDT Office Visit [place] [address] [address] [place] [address] Ricardo Paulino MD Dizziness (X2 years, was seeing another doctor for this and was put on medication, usually have episodes in the morning) 09/20/2024 Travel 09/20/2024 1:30 PM CDT Office Visit [facility] Physical Therapy [address] [place] [address] [address] [place] [address] Ricardo Paulino MD Weedon, Meaghan B, PT Urinary Concern 09/13/[address] [place] [address] Ricardo Paulino MD Lab Order 09/13/2024 Travel 09/13/2024 1:40 PM CDT [facility] [address] [facility] [address] [place] [address] Ricardo Paulino MD Physical 09/05/2024 - 09/05/2024 11:59 PM CDT Hospital Encounter [facility] [place] [address] Ricardo Paulino MD Discharge Disposition: Home or Self Care (Routine Discharge) 09/05/2024 Results Follow-Up [address] [place] [address] Ricardo Paulino MD HEMOGLOBIN, GLYCOSYLATED, TSH W/REFLEX, LIPID PANEL, Additional followed-up results: 4 09/05/2024 Travel 09/05/2024 7:10 AM CDT Laboratory Only [address] [place] [address] Ricardo Paulino MD 08/10/2024 Travel 08/09/2024 Results Follow-Up [place] [address] [facility] [address] [place] [address] Ricardo Paulino MD VITAMIN B-12, XR FOOT LT 3V 08/08/2024 Travel 08/08/2024 11:20 AM CDT Office Visit [address] [place] [address] Ricardo Paulino MD Follow Up (acute); Leg Pain (Left. SX almost a month, pain around the heel. Sitting with legs crossed is worse. Walking is okay but after sitting and she stands, the pain is worse. ) 08/02/2024 Telephone [place] [address] [facility] [address] [place] [address] Ricardo Paulino MD Follow Up Call 02/03/2024 Travel 02/03/2024 11:40 AM CDT Office Visit [address] [place] [address] Xenia Cummins NP Heartburn (X 3 weeks) 09/06/2023 MyChart Message Enc [address] [place] [address] [facility], [facility] Provider Lab results 09/02/2023 Telephone [place] [address] [address] [place] [address] Ricardo Paulino MD Record Request 09/02/2023 MyChart Message Enc [place] [address] [address] [place] [address] [facility]sh[facility], [facility] Provider lab results 08/31/2023 - 08/31/2023 11:59 PM CDT Hospital Encounter [facility] [address] Ricardo Paulino MD Discharge Disposition: Home or Self Care (Routine Discharge) 08/31/2023 Travel 08/31/2023 9:20 AM CDT Office Visit [place] [address] [address] [place] [address] Ricardo Paulino MD Physical; Menstrual Problem 08/21/2022 Scan [facility] Scanned, [facility] Procedure (SCAN) 08/07/2022 Scan [facility] Scanned, [facility] 05/08/2022 Scan [facility] Scanned, [facility] Procedure (SCAN); Pathology (SCAN) 03/04/2022 Travel 03/04/2022 4:20 PM CORRESPONDENCE RENEW CLERK Office Visit [place] [address] [address] [place] [address] Yamil Bautista MD Dizziness (Feels off balance, room spinning); Headache 02/19/[address] [place] [address] Yamil Bautista MD Appointment Request 02/19/2022 Travel 02/19/2022 11:00 AM CDT [facility] [place] [address] [address] [place] [address] [address] [place] [address] Yamil Bautista MD Physical 01/19/2022 [facility] [place] [address] [address] [place] [address] [address] [place] [address] Yamil Bautista MD Lab Results 01/13/2022 Orders Only [place] [address] [address] [place] [address] [address] [place] [address] Henny Moncada, Nurse Fire Sprinkler Inspector I 01/13/2022 Travel 01/13/2022 2:00 PM CDT Allied Health/Nurse Visit [place] [address] [address] [place] [address] [address] [place] [address] Yamil Bautista MD Lab Draw 01/12/[address] [place] [address] Yamil Bautista MD Lab Order 01/06/2022 Travel 01/06/2022 10:40 AM CDT [facility] [address] [address] [place] [address] [address] [place] [address] Yamil Bautista MD New Patient (Discuss updating bloodwork); Foot Pain (Bilateral, sx x 1 month, with standing and walking); Med Refills (meclizine) 12/15/2021 Telephone [facility] [place] [address] [place] [address] Cynthia Abrams, DISTRICT GAUGER Record Request 03/26/2020 Scan HEALTH INFO SRVCS Scanned, [facility] Pathology (SCAN) 08/21/[address] [address] Cynthia Abrams DISTRICT GAUGER Medication Request 07/06/2019 Travel 07/06/2019 11:20 AM CDT Office Visit [facility] [address] [place] [address] Cynthia Abrams, DISTRICT GAUGER Cough (Pt states she has had a cough for 3 days with a runny nose and body aches. She denies OTC medication use.) 03/13/2019 2:00 PM CORRESPONDENCE RENEW CLERK Office Visit [address] [address] Cynthia Abrams DISTRICT GAUGER Follow Up (Pt is here to F/U for dizziness. She states she still has the same issue but it is a little better. She has been taking the meclizine and that seems to help when she has the dizziness.) 03/02/2019 7:18 PM CORRESPONDENCE RENEW CLERK - 03/02/2019 11:59 PM CORRESPONDENCE RENEW CLERK Hospital Encounter [facility] [address] [facility] [place] [place] [address] Cynthia Abrams DISTRICT GAUGER Discharge Disposition: Home or Self Care (Routine Discharge) 03/02/2019 1:00 PM CORRESPONDENCE RENEW CLERK Office Visit [address] [address] Cynthia Abrams, DISTRICT GAUGER Dizziness (Pt states she has been getting dizzy nightly and in the morning. She states when this happens she sits down for a few seconds and this goes away. She atlo C/O this happening at work as well. Has been going on for about a week. 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.) 03/01/2019 Orders Only [facility] [place] [address] [place] [address] Lynda Douglas MA 12/03/2017 Abstract [facility] Cynthia Abrams NP 12/03/2017 Abstract [facility] Andrew Lundberg MD 12/03/2017 8:30 AM CDT - 12/03/2017 11:59 PM CDT Hospital Encounter [facility] [place] [address] Non-Staff, Provider Discharge Disposition: Home or Self Care (Routine Discharge) 12/01/2017 Abstract [facility] Cynthia Abrams NP 11/12/2016 Abstract [facility] 11/11/2016 Abstract [facility] [address] [id number] Esperanza Ames NP 11/11/2016 Abstract [place] [address] Esperanza Ames NP 07/08/2016 Abstract [facility] 07/06/2016 Abstract [facility] [address] [address] Juwan Roland MD 07/06/2016 Abstract [facility] Esperanza Ames NP 07/06/2016 Abstract [place] [address] Esperanza Ames NP 07/03/[address] [address] Esperanza Ames NP Allergies No known active allergies Medications omeprazole (PRILOSEC) 20 MG capsuleIndicatio ns:Gastroesophag eal reflux disease without esophagitis Take 1 capsule (20 mg total) by mouth daily. 30 capsule 2 4 Active famotidine (PEPCID) 20 MG tabletIndication s:Gastroesophage al reflux disease without esophagitis Take 1 tablet (20 mg total) by mouth 2 (two) times daily as needed for Heartburn. 60 tablet 1 4 Active Additional Information Patient not taking.Reported on 01/30/2025 Norethindrone, Contraceptive, 0.35 MG tablet Take 1 tablet by mouth daily. 4 Active vitamin D2, ergocalciferol, (DRISDOL) 1.25 mg capsuleIndicatio ns:Vitamin D deficiency Take 1 capsule (50,000 Units total) by mouth every 7 days. 12 capsule 3 5 Active Additional Information Patient not taking.Reported on 01/30/2025 meclizine (ANTIVERT) 25 MG tabletIndication s:Vertigo Take 1 tablet (25 mg total) by mouth nightly at bedtime. 30 tablet 5 Active tranexamic acid (LYSTEDA) 650 MG tabletIndication s:Menorrhagia with regular cycle Take 1 tablet (650 mg total) by mouth daily. 5 tablet 5 Active ferrous sulfate, 65 mg elemental, 325 (65 FE) MG tabletIndication s:Iron deficiency anemia, unspecified iron deficiency anemia type Take 1 tablet (325 mg total) by mouth 2 (two) times daily before meals. 180 tablet 1 5 Active Active Problems Problem Noted Date Diagnosed Date Lower back pain 12/01/2017 Sciatica 12/01/2017 Late menses 11/11/2016 Hematuria 07/06/2016 Resolved Problems Problem Noted Date Diagnosed Date Resolved Date test positive 11/11/201612/19 Encounter to establish care 07/03/2016 12/29/2019 Immunizations Immunization Administration Dates Next Due Influenza Adult (Generic) 06/18/2017 Tdap (Generic) 06/17/2017 Family History Relation Status Comments Father Mother Social History Smoking Status as of 03/13/2025 Tobacco Use Types Packs/Day Years Used Date Smoking Tobacco: Never Assessed B1300 Health Literacy Answer Date Recor ded How often do you need to hav e someone help you when you read instructions, pamphlets, or other written material from your doctor or pharmacy? Never 09/13/2024 [facility] Utilities Answer Date Recorded In the past 12 months has [facility], gas, oil, or water company threatened to [...] week 09/13/2024 How often do you attend [facility] or orthodoxy services? Patient declined 09/13/2024 Do you belong to any clubs o r organizations such as orthodox groups, unions, fraternal or athletic groups, or [...] Recorded Patient Health Questionnaire-2 Score 0 09/13/2024 [facility] - Occupational [...] any time in the past 12 m [facility], were you homeless or living in a fpc (including now)? No 09/13/2024 Sex and Gender Information Value Date Recorded Sex Assigned at Female 10/11/2024 2:51 PM CDT Legal Sex Female 7:37 PM CDT Gender Identity Female 10/11/2024 2:51 PM CDT Sexual Orientation Not on file Last Filed Vital Signs Vital Sign Reading Time Taken Comments Blood Pressure 132/76 01/30/2025 11:51 AM CDT Pulse 78 01/30/2025 11:51 AM CDT Temperature 37 C (98.6 F) 01/30/2025 11:51 AM CDT Respiratory Rate 16 01/30/2025 11:51 AM CDT Oxygen Saturation 98% 01/30/2025 11:51 AM CDT Inhaled Oxygen Concentration - - Weight 73.8 kg (162 lb 9.6 oz) 01/30/2025 11:51 AM CDT Height 167.6 cm (5' 6) 01/30/2025 11:51 AM CDT Body Mass Index 26.24 01/30/2025 11:51 AM CDT Plan of Treatment Not on file Procedures Procedure Name Priority Date/Time Associated Diagnosis Comments HEMOGLOBIN, GLYCOSYLATED Routine 01/30/2025 12:12 PM CDT Prediabetes FERRITIN Routine 01/30/2025 12:12 PM CDT Annual physical exam General medical exam Drug therapy FOLIC ACID SERUM Routine 01/30/2025 12:1 2 PM CDT Annual physical exam General medical exam Drug therapy IRON Routine 01/30/2025 12:12 PM CDT Annual physical exam General medical exam Drug therapy RETIC, HGB CONCENTRATE Routine 12:12 PM CDT Annual physical exam General medical exam Drug therapy BLOOD SMEAR INTERPRETATION BY MD Routine 01/30/2025 12:12 PM CDT Drug therapy CBC W/DIFF AUTOMATED Routine 01/30/2025 12:12 PM CDT Menorrhagia with regular cycle PATHOLOGY Routine 01/30/2025 12:00 AM CDT MG SCREENING W LUBA NIA DIGI Routine 01/25/2025 2:23 PM CDT Drug therapy Encounter for screening mammogram for malignant neoplasm of breast COLLECTION VENOUS BLOOD VENIPUNCTURE Routine 09/13/2024 2:21 PM CDT Annual physical exam General medical exam Drug therapy URINALYSIS, AUTO, COMPLETE Routine 09/05/2024 11:26 AM CDT Annual physical exam CBC W/DIFF AUTOMATED Routine 09/05/2024 11:26 AM CDT Annual physical exam Establishing care with new doctor, encounter for General medical exam COMPREHENSIVE METABOLIC PANEL Routine 09/05/2024 11:26 AM CDT Annual physical exam Establishing care with new doctor, encounter for General medical exam LIPID PANEL Routine 09/05/2024 11:26 AM CDT Annual physical exam Establishing care with new doctor, encounter for General medical exam Screening for hyperlipidemia TSH W/REFLEX Routine 09/05/2024 11:26 AM CDT Annual physical exam Establishing care with new doctor, encounter for General medical exam Screening for hypothyroidism HEMOGLOBIN, GLYCOSYLATED Routine 09/05/2024 11:26 AM CDT Annual physical exam Establishing care with new doctor, encounter for General medical exam Screening for diabetes mellitus HEPATITIS C ANTIBODY Routine 09/05/2024 11:26 AM CDT Annual physical exam Establishing care with new doctor, encounter for General medical exam Encounter for hepatitis C screening test for low risk patient XR FOOT LT 3V Routine 08/10/2024 1:42 PM CDT Plantar fasciitis VITAMIN B-12 Routine 08/08/2024 12:01 PM CDT Plantar fasciitis COLLECTION VENOUS BLOOD VENIPUNCTURE Routine 08/08/2024 11:58 AM CDT Plantar fasciitis METHYLMALONIC ACID Routine 08/31/2023 7: 09 PM CDT Annual physical exam Establishing care with new doctor, encounter for General medical exam Screening for diabetes mellitus Screening for hyperlipidemia Screening for hypothyroidism Encounter for hepatitis C screening test for low risk patient Low serum vitamin B12 VITAMIN B-12 Routine 08/31/2023 10:31 AM CDT Annual physical exam Establishing care with new doctor, encounter for General medical exam Screening for diabetes mellitus Screening for hyperlipidemia Screening for hypothyroidism Encounter for hepatitis C screening test for low risk patient Low serum vitamin B12 HEPATITIS C ANTIBODY Routine 08/31/2023 10:31 AM CDT Annual physical exam Establishing care with new doctor, encounter for General medical exam Encounter for hepatitis C screening test for low risk patient HEMOGLOBIN, GLYCOSYLATED Routine 08/31/2023 10:31 AM CDT Annual physical exam Establishing care with new doctor, encounter for General medical exam Screening for diabetes mellitus TSH W/REFLEX Routine 08/31/2023 10:31 AM CDT Annual physical exam Establishing care with new doctor, encounter for General medical exam Screening for hypothyroidism LIPID PANEL Routine 08/31/2023 10:31 AM CDT Annual physical exam Establishing care with new doctor, encounter for General medical exam Screening for hyperlipidemia COMPREHENSIVE METABOLIC PANEL Routine 08/31/2023 10:31 AM CDT Annual physical exam Establishing care with new doctor, encounter for General medical exam CBC W/DIFF AUTOMATED Routine 08/31/2023 10:31 AM CDT Annual physical exam Establishing care with new doctor, encounter for General medical exam COLLECTION VENOUS BLOOD VENIPUNCTURE Routine 08/31/2023 10:21 AM CDT Annual physical exam Establishing care with new doctor, encounter for General medical exam URINALYSIS AUTO DIP Routine 08/31/2023 Annual physical exam Establishing care with new doctor, encounter for General medical exam PROCEDURE GENERIC (SCAN ORDER) 08/21/2022 PATHOLOGY GENERIC (SCAN ORDER) 05/08/2022 PROCEDURE GENERIC (SCAN ORDER) 05/08/2022 VITAMIN B-12 Routine 01/13/2022 2:17 PM CDT Low serum vitamin B12 Vertigo CBC W/DIFF AUTOMATED Routine 01/06/2022 11:37 AM CDT Vertigo BASIC METABOLIC PANEL Routine 01/06/2022 11:37 AM CDT Vertigo Overweight (BMI 25.0-29.9) LIPID PANEL Routine 01/06/2022 11:37 AM CDT Overweight (BMI 25.0-29.9) OUTSIDE CYTOPATH CERV/VAG INTERPRET (PAP) 03/26/2020 COLLECTION VENOUS BLOOD VENIPUNCTURE Routine 03/02/2019 2:11 PM CORRESPONDENCE RENEW CLERK Health care maintenance CBC W/DIFF AUTOMATED Routine 03/02/2019 2:10 PM CORRESPONDENCE RENEW CLERK Health care maintenance TSH W/REFLEX Routine 03/02/2019 2:10 PM CORRESPONDENCE RENEW CLERK Health care maintenance COMPREHENSIVE METABOLIC PANEL Routine 03/02/2019 2:10 PM CORRESPONDENCE RENEW CLERK Health care maintenance XR LUMB SPINE 3V Routine 12/03/2017 9:03 AM CDT Sciatica IMAGE GENERIC Routine 12/03/2017 8:30 AM CDT XR LUMB SPINE 3V Routine 12/01/2017 2:43 PM CDT HCG QUANT (SERUM)-CHORIONIC GONADOTROPIN Routine 11/11/2016 10:08 AM CDT HCG QUANT (SERUM)-CHORIONIC GONADOTROPIN Routine 11/11/2016 10:08 AM CDT URINE BACTERIA CULTURE Routine 7 2:16 PM CDT URINE BACTERIA CULTURE Routine 7 2:16 PM CDT URINALYSIS WI REFLEX TO CULTURE Routine 07/06/2016 2:16 PM CDT URINALYSIS WI REFLEX TO CULTURE Routine 07/06/2016 2:16 PM CDT URINALYSIS AUTO DIP Routine 07/06/2016 2 :15 PM CDT COMPREHENSIVE METABOLIC PNL W DBIL Routine 07/06/2016 10:01 AM CDT CBC W/DIFF AUTOMATED Routine 07/06/2016 10:01 AM CDT LIPID PANEL Routine 07/06/2016 10:01 AM CDT TSH W/REFLEX Routine 07/06/2016 10:01 AM CDT TSH W/REFLEX Routine 07/06/2016 10:01 AM CDT LIPID PANEL Routine 07/06/2016 10:01 AM CDT COMPREHENSIVE METABOLIC PNL W DBIL Routine 07/06/2016 10:01 AM CDT CBC W/DIFF AUTOMATED Routine 07/06/2016 10:01 AM CDT Results * (ABNORMAL) HEMOGLOBIN, GLYCOSYLATED (01/30/2025 12:12 PM CDT) Only the most recent of3 resultswithin the time period is included. [facility] HGB A1C 5.7 4.5 - 6.2 % 01/30/2025 9:04 PM CDT [facility] ESTIMATED AVG GLUCOSE 117(H) 74 - 106 MG/DL 01/30/2025 9:04 PM CDT [facility] 01/30/2025 12:1 2 PM CDT Ricardo Paulino MD LABORATORY Final Result [facility] [address] [place] [address], * (ABNORMAL) IRON SAT PANEL (IRON,IBC,%SAT) (01/30/2025 12:12 PM CDT) [facility] IRON 28(L) 50 - 170 MCG/DL 01/31/2025 10:59 AM CDT [facility] IRON BINDING CAPACITY 457(H) 250 - 450 MCG/DL 01/31/2025 10:59 AM CDT [facility] IRON SATURATION 6 % 10:59 AM CDT [facility] Comment:REFERENCE RANGE NOT ESTABLISHED 01/30/2025 12:1 2 PM CDT us Ricardo Paulino MD LABORATORY Final Result [facility] [address] [facility] [place] [address], [place] [phone] * RETICULOCYTE CT, AUTO (01/30/2025 12:12 PM CDT) RETICULOCYTE COUNT 1.2 0.6 - 2.3 % 01/30/2025 9:[address] [facility] ABSOLUTE RETICULOCYTE 0.05 0.02 - 0.10 x10'6/uL 01/30/2025 9:[address] [facility] IMMATURE RETIC FRACTION 10.4 3.0 - 15.9 % 01/30/2025 9:[address] [facility] RETIC HGB 28.2 28.0 - 35.0 PG 01/30/2025 9:[address] [facility] 01/30/2025 12:1 2 PM CDT Ricardo Paulino MD LABORATORY Final Result Performing Organization Address [facility] Co de Phone Number [facility] [address] [place] [address], [place] [phone] * BLOOD SMEAR PERIPHERAL INTERP PHYS W/WRIT REPORT (01/30/2025 12:12 PM CDT) SMEAR TO PATHOLOGIST SENT TO PATHOLOGIST FOR REVIEW 01/30/2025 8:[address] [facility] 01/30/2025 12:1 2 PM CDT us Ricardo Paulino MD LABORATORY Final Result [facility] [address] [place] [phone], [id number] * FOLIC ACID SERUM (01/30/2025 12:12 PM CDT) Pathologist [facility] FOLATE 17.5 8.6 - 58.9 NG/ML 01/31/2025 11:00 AM CDT [facility] 01/30/2025 12:1 2 PM CDT Ricardo Paulino MD LABORATORY Final Result [facility] [address] [place] [address], * (ABNORMAL) CBC W/DIFF AUTOMATED (01/30/2025 12:12 PM CDT) Only the most recent of7 resultswithin the time period is included. [facility] WBC 4.58 4.00 - 10.80 x10'3/uL 01/30/2025 8:20 PM CDT [facility] RBC 4.34 4.10 - 5.40 x10'6/uL 01/30/2025 8:20 PM CDT [facility] HGB 11.5(L) 12.0 - 16.0 G/DL 01/30/2025 8:20 PM CDT [facility] HCT 37.4 36.0 - 47.0 % 01/30/2025 8:20 PM CDT [facility] MCV 86.2 78.0 - 100.0 FL 01/30/2025 8:20 PM CDT [facility] MCH 26.5(L) 27.0 - 31.0 PG 01/30/2025 8:20 PM CDT [facility] MCHC 30.7(L) 33.0 - 36.0 G/DL 01/30/2025 8:20 PM CDT [facility] RDW 14.8(H) 11.5 - 14.5 % 01/30/2025 8:20 PM CDT -[facility] PLT 302 150 - 350 x10'3/uL 01/30/2025 8:20 PM CDT [facility] MPV 10.9(H) 7.4 - 10.4 FL 01/30/2025 8:20 PM CDT [facility] DIFFERENTIAL TYPE AUTOMATED DIFFERENTIAL 01/30/2025 8:21 PM CDT [facility] NEUTROPHIL[facility] % 54.2 % 01/30/2025 8:21 PM CDT [facility] LYMPHOCYTES % 36.0 % 01/30/2025 8:21 PM CDT [facility] MONOCYTES % 7.4 % 01/30/2025 8:21 PM CDT [facility] EOSINOPHILS % 1.5 % 01/30/2025 8:21 PM CDT [facility] BASOPHILS % 0.9 % 01/30/2025 8:21 PM CDT [facility] IMMATURE GRANS % 0.0 % 01/30/2025 8:21 PM CDT [facility] ABS. NEUTROPHILS 2.48 1.60 - 8.30 x10'3/uL 01/30/2025 8:21 PM CDT [facility] ABS. LYMPHOCYTES 1.65 0.80 - 4.70 x10'3/uL 01/30/2025 8:21 PM CDT [facility] ABS. MONOCYTES 0.34 0.00 - 1.50 x10'3/uL 01/30/2025 8:21 PM CDT [facility] ABS. EOSINOPHILS 0.07 0.00 - 0.40 x10'3/uL 01/30/2025 8:21 PM CDT [facility] ABS. BASOPHILS 0.04 0.00 - 0.20 x10'3/uL 01/30/2025 8:21 PM CDT [facility] ABS. IMMATURE GRANULOCYTES 0.00 0.00 - 0.03 x10'3/uL 01/30/2025 8:21 PM CDT [facility] 01/30/2025 12:1 2 PM CDT Ricardo Paulino MD LABORATORY Final Result Performing Organization Address City/[facility]/ZIP Co de Phone Number [facility] [address] [place] [address], * (ABNORMAL) FERRITIN (01/30/2025 12:12 PM CDT) FERRITIN 3.3(L) 8.0 - 252.0 NG/ML 01/31/2025 5:[address] [facility] [facility] 01/30/2025 12:1 2 PM CDT Ricardo Paulino MD LABORATORY Final Result Performing Organization Address [facility] de Phone Number [facility] [address] [place] [address], [id number] * Pathology (01/30/2025 12:00 AM CDT) PATHOLOGY [facility] Department of Laboratory Medicine [address] [place] [address] , extension [phone] Pathology Report Peripheral Smear Report Name: REINA AVERY Specimen #: [id number] Age: 9 1985 (Age: 39) Location: [facility] Sex: F Procedure Date: 01/30/2025 [facility] #: [id number] Date Received: 01/31/2025 Date Reported: 01/31/2025 Provider: RICARDO PAULINO MD Source: Peripheral blood Clinical History: Anemia, heavy menstrual bleeding FINAL DIAGNOSIS: Peripheral blood, smear review: - Mild normocytic hypochromic anemia, see comment. Diagnosis Comment: Differential diagnostic considerations would include anemia of chronic disease, infection/inflammati on, medication effect, or early iron deficiency/bleeding. Concurrent serum iron studies show decreased iron and increased iron binding capacity with iron saturation of 6%. Serum ferritin remains pending. There is no morphologic evidence of a microangiopathic hemolytic process or hematologic neoplasm. Electronically Signed Out FLYNN MANCUSO MD INTERPRETATION: Peripheral Blood Comments: CBC data: WBC: 4.58 x K/uL; Hgb: 11.5 g/dL; Hct: 37.4%; MCV: 86.2 fl; MCHC: 30.7 g/dl; RDW: 14.8%; Plt: 302 K/uL Automated differential: IG 0.0%, neutrophils 54.2%, lymphocytes 36.0%, monocytes 7.4%, eosinophils 1.5%, basophils 0.9% RED BLOOD CELLS: There is mild normocytic hypochromic anemia with mild anisocytosis. No significant polychromasia, schistocytes, spherocytes, target cells, coarse basophilic stippling, agglutination or rouleaux is identified. WHITE BLOOD CELLS: White blood cells are of normal absolute count and have a differential as per the CBC. Neutrophils are mature and show normal nuclear segmentation and cytoplasmic granularity. Lymphocytes are predominantly small with scant cytoplasm, round nuclei, condensed chromatin, and indistinct nucleoli. Monocytes, eosinophils and basophils are unremarkable. PLATELETS: The platelet count is normal with unremarkable platelet morphology. Gross examination (when applicable), interpretation, and sign out were performed at [facility], [address] [place] [address]. [facility] 01/30/2025 01/31/2025 9:2 2 AM CDT Comment:Peripheral blood us Ricardo Paulino MD PATHOLOGY/CYTOLOGY ORDERABLES Fi nal Result [facility] [address] [place] [address], [id number] * MG SCREENING W LUBA NIA DIGI (01/25/2025 2:23 PM CDT) Anatomical Region Laterality Modality Breast Bilateral Mammography 01/25/2025 2:48 PM CDT Impressions 01/25/2025 2:49 PM CDT IMPRESSION: No suspicious mammographic findings. Recommendation: 1. Routine Screening, Bilateral Assessment: ACR BI-RADS 2 - BENIGN FINDING(S) Ordered By: RICARDO PAULINO Interpreted By: Darwin Kenney, 01/25/2025 2:48 PM Narrative 01/25/2025 2:49 PM CDT [facility] [address] [place] [address] Examination: Screening bilateral mammogram Exam Date/Time: 01/25/2025 2:05 PM Clinical history: No current complaints. Comparison: None, baseline exam Technique: Digital screening mammography of both breasts was performed. Breast tomosynthesis acquisitions were obtained and reviewed. This study was read with the assistance of a computer-aided detection system. Tissue density: There are scattered areas of fibroglandular density. Findings: No suspicious masses, malignant appearing calcifications, skin thickening or other abnormalities are present. Ricardo Paulino MD MAMMO Final Result * TSH W/REFLEX (09/05/2024 11:26 AM CDT) Only the most recent of5 resultswithin the time period is included. TSH 2.022 0.358 - 3.740 uIU/ML 09/05/2024 5:32 PM CDT -[facility] 09/05/2024 11:2 6 AM CDT us Ricardo Paulino MD LABORATORY Final Result -[facility] [address] [place] [address], [place] [phone] * (ABNORMAL) URINALYSIS (09/05/2024 11:26 AM CDT) [facility] Signature COLOR (U) YELLOW 09/05/2024 5:21 PM CDT [facility] TRANSPARENCY CLEAR CLEAR 09/05/2024 5:21 PM T [facility] SPECIFIC GRAVITY (U) 1.015 1.003 - 1.040 09/05/2024 5:21 PM T [facility] U PH 6.0 5.0 - 9.0 09/05/2024 5:21 PM CDT [facility] PROTEIN RANDOM (U) NEGATIVE NEGATIVE 09/05/2024 5:21 PM T [facility] GLUCOSE (U) NEGATIVE NEGATIVE 09/05/2024 5:21 PM T [facility] KETONES MG/DL (U) NEGATIVE NEGATIVE 09/05/2024 5:21 PM T [facility] BILIRUBIN (U) NEGATIVE NEGATIVE 09/05/2024 5:21 PM T [facility] BLOOD (U) TRACE(A) NEGATIVE 09/05/2024 5:21 PM T [facility] UROBILINOGEN 0.2 0.0 - 2.0 EU/DL 09/05/2024 5:21 PM CDT [facility] NITRITES NEGATIVE NEGATIVE 09/05/2024 5:21 PM T [facility] LEUKOCYTES (U) 1+(A) NEGATIVE 09/05/2024 5:21 PM CDT [facility] RBC/HPF 0-3 0 - 3 /HPF 09/05/2024 5:21 PM CDT [facility] WBC/HPF 4-9(A) 0 - 3 /HPF 09/05/2024 5:21 PM CDT [facility] EPI/HPF 4-9 /HPF 09/05/2024 5:21 PM CDT [facility] BACTERIA (U) 1+(A) NONE SEEN 09/05/2024 5:21 PM CDT [facility] MUCUS FEW 09/05/2024 5:21 PM CDT [facility] URINE SPECIMEN OBTAINED BY CLEAN CATCH PROCEDURE / Unknown 09/05/2024 11:26 AM CDT us Ricardo Paulino MD URINE ORDERABLES Final Result [facility] [place] [address] [place] [address], * (ABNORMAL) COMPREHENSIVE METABOLIC PANEL (09/05/2024 11:26 AM CDT) Only the most recent of3 resultswithin the time period is included. SODIUM S/P/B 139 136 - 145 MMOL/L 09/05/2024 5:32 PM CDT [facility] POTASSIUM S/P/B 3.9 3.5 - 5.1 MMOL/L 09/05/2024 5:32 PM CDT [facility] CHLORIDE S/P/B 106 98 - 107 MMOL/L 09/05/2024 5:32 PM CDT [facility] CO2 22.1 21 - 32 MMOL/L 09/05/2024 5:32 PM CDT [facility] GLUCOSE 102(H) 70 - 99 MG/DL 09/05/2024 5:32 PM CDT [facility] BUN 9 7 - 18 MG/DL 09/05/2024 5:32 PM CDT [facility] CREATININE S/P/B 0.60 0.55 - 1.02 MG/DL 09/05/2024 5:32 PM CDT [facility] CALCIUM S/P/B 9.0 8.4 - 10.5 MG/DL 09/05/2024 5:32 PM CDT [facility] BILIRUBIN TOTAL S/P/B 0.4 0.2 - 1.0 MG/DL 09/05/2024 5:32 PM CDT [facility] ALKALINE PHOSPHATASE S/P/B 69 37 - 98 U/L 09/05/2024 5:32 PM T [facility] AST 13(L) 15 - 37 U/L 09/05/2024 5:32 PM T [facility] ALT 14 14 - 59 U/L 09/05/2024 5:32 PM T [facility] TOTAL PROTEIN S/P/B 7.5 6.4 - 8.2 G/DL 09/05/2024 5:32 PM T [facility] ALBUMIN S/P/B 3.8 3.4 - 5.0 G/DL 09/05/2024 5:32 PM T [facility] ANION GAP 10.9 5 - 15 MMOL/L 09/05/2024 5:32 PM T [facility] Comment:REFERENCE RANGE NOT ESTABLISHED OSMOLALITY (CALC) 287 MOSM/KG 025 5:32 PM T [facility] Comment:REFERENCE RANGE NOT ESTABLISHED GFR ESTIMATE >90 >90 ML/MIN/1. 73 M2 09/05/2024 5:32 PM T [facility] GFR NOTES GFR REFERENCE S: 09/05/2024 5:32 PM [facility] Comment: THE ESTIMATED GFR IS CALCULATED USING THE 2020 CKD-EPI EQUATION. THE FOLLOWING CATEGORIES FOR GRADING RENAL FUNCTION ARE RECOMMENDED BY THE INTERNATIONAL SOCIETY OF NEPHROLOGY (KDIGO 2012 CLINICAL PRACTICE GUIDELINE). G1,NORMAL OR HIGH: >89 ml/min/1.73 m2 G2,MILDLY DECREASED: 60-89 ml/min/1.73 m2 G3A,MILDLY TO MODERATELY DECREASED: 45-59 ml/min/1.73 m2 G3B,MODERATELY TO SEVERELY DECREASED: 30-44 ml/min/1.73 m2 G4,SEVERELY DECREASED: 15-29 ml/min/1.73 m2 G5,KIDNEY FAILURE: <15 ml/min/1.73 m2 09/05/2024 11:2 6 AM CDT us Ricardo Pauilno MD LABORATORY Final Result [facility] [place] [address] [place] [address], [place] [phone] * LIPID PANEL (09/05/2024 11:26 AM CDT) Only the most recent of5 resultswithin the time period is included. [facility] Signature CHOLESTEROL 170 <200 MG/DL 09/05/2024 5:32 PM CDT [facility] TRIGLYCERIDES 91 <150 MG/DL 09/05/2024 5:32 PM CDT [facility] HDL 57 >40 MG/DL 09/05/2024 5:32 PM CDT [facility] LDL-C 95 <100 MG/DL 09/05/2024 5:32 PM CDT [facility] VLDL CALCULATION 18 5 - 28 MG/DL 09/05/2024 5:32 PM CDT [facility] CHOL/HDL RATIO 3.0 0.0 - 4.0 09/05/2024 5:32 PM CDT [facility] LDL/HDL 1.7 0.41 - 2.13 09/05/2024 5:32 PM CDT [facility] NON HDL CHOLESTEROL 113 <140 MG/DL 09/05/2024 5:32 PM CDT [facility] 09/05/2024 11:2 6 AM CDT us Ricardo Paulino MD LABORATORY Final Result [facility] [address] [place] [address], [place] [phone] * HEPATITIS C ANTIBODY (09/05/2024 11:26 AM CDT) Only the most recent of2 resultswithin the time period is included. HEPATITIS C AB NON-REACTI VE NON-REACT KIRA 09/05/2024 8:[address] [facility] Comment: ANTIBODIES TO HCV NOT DETECTED. DOES NOT EXCLUDE THE POSSIBILITY OF EXPOSURE TO HCV. 09/05/2024 11:2 6 AM CDT Ricardo Paulino MD LABORATORY Final Result [facility] [address] [place] [address], [place] [phone] [id number] * XR FOOT LT 3V (08/10/2024 1:42 PM CDT) Anatomical Region Laterality Modality Foot Radiographic Jennifer ging 08/10/2024 1:32 PM CDT Narrative 08/14/2024 3:54 PM CDT [facility] [address] [address] Examination: XR FOOT LT 3V Exam time: 08/10/2024 1:32 PM Clinical history: Left foot pain for one month without known injury. Comparison: None. Technique: AP, lateral, and oblique views of the left foot. Findings: There is a normal anatomic variant biphalangeal fifth toe as well as a normal anatomic variant type II accessory navicular. No radiographic evidence is seen to suggest acute fracture or malalignment of the bones of the left foot.. IMPRESSION: No radiographic evidence is seen to suggest acute fracture or malalignment of the bones of the left foot. Referred By: Interpreted By: Kareem Bradley DO, 08/14/2024 3:52 PM Procedure Note Kareem Bradley DO - 08/14/2024 [facility] [address] [address] Examination: XR FOOT LT 3V Exam time: 08/10/2024 1:32 PM Clinical history: Left foot pain for one month without known injury. Comparison: None. Technique: AP, lateral, and oblique views of the left foot. Findings: There is a normal anatomic variant biphalangeal fifth toe as well as anormal anatomic variant type II accessory navicular. No radiographicevidence is seen to suggest acute fracture or malalignment of the bones ofthe left foot.. IMPRESSION: No radiographic evidence is seen to suggest acute fracture or malalignmentof the bones of the left foot. Referred By: Interpreted By: Kareem Bradley DO, 08/14/2024 3:52 PM us Ricardo Paulino MD GENERAL IMAGING Final Result * VITAMIN B-12 (08/08/2024 12:01 PM CDT) Only the most recent of3 resultswithin the time period is included. VITAMIN B12 S/P/B 341 193 - 986 PG/ML 08/09/2024 11:10 AM CDT [facility] 08/08/2024 12:0 1 PM CDT us Ricardo Paulino MD LABORATORY Final Result [facility] [address] [place] [address], * METHYLMALONIC ACID (08/31/2023 7:09 PM CDT) METHYLMALONIC ACID 122 87 - 318 nmol/L [facility] GABRIEL SAM Comment: This test was developed and its analytical performance characteristics have been determined by [employer] [place], [place]. It has not been cleared or approved by the U.S. Food and Drug Administration. This assay has been validated pursuant to the CLIA regulations and is used for clinical purposes. 08/31/2023 7:09 PM CDT 09/02/2023 5:01 AM CDT Narrative Resulting Agency Comment Performing Organization Information: Site ID: AMD Name: [facility] Address: [address] [place] [address] Director: Roby Peace M.D.,PhD Ricardo Paulino MD LABORATORY Final Result Performing Organization Address City/[facility]/ZIP Co de Phone Number [facility] FLEX MICHA[address] , [place] [phone] * (ABNORMAL) URINALYSIS AUTO DIP (08/31/2023) Only the most recent of2 resultswithin the time period is included. COLOR (U) YELLOW YELLOW [address] TRANSPARENCY CLEAR CLEAR [address], [place] GLUCOSE (U) NEGATIVE NEGATIVE MG/DL MG[address], [place] BILIRUBIN (U) NEGATIVE NEGATIVE MG-[address], [place] KETONES MG/DL (U) NEGATIVE NEGATIVE MG/DL [address], [place] SPECIFIC GRAVITY (U) 1.020 1.001 - 1.035 [address], [place] BLOOD (U) LARGE (3+ Hemolyzed, About 250 rbc/uL)(A) NEGATIVE MG[address], [place] U PH 5.5 5.0 - 9.0 [address], [place] PROTEIN (U) NEGATIVE NEGATIVE mg/dL MG-[address], [place] UROBILINOGEN 0.2 0.2 - 1.0 EU/dL = mg/dL MG-[address], [place] NITRITES NEGATIVE NEGATIVE MG/DL MG-[address], [place] LEUKOCYTES (U) 1+ (SMALL)(A) NEGATIVE MG-[address], [place] URINE SPECIMEN OBTAINED BY CLEAN CATCH PROCEDURE / Unknown 08/31/2023 Ricardo Paulino MD URINE ORDERABLES Final Result Performing Organization Address City/[facility]/ZIP Co de Phone Number [address], [place] [address] [place] [address], [place] [phone] * PROCEDURE GENERIC (08/21/2022) 08/21/2022 [employer] [facility] Scanned SCANNING Final Resu lt * PATHOLOGY GENERIC (05/08/2022) 05/08/2022 [facility] [employer] [facility] Scanned SCANNING Final Resu lt * PROCEDURE GENERIC (05/08/2022) 05/08/2022 [employer] [facility] Scanned SCANNING Final Resu lt * (ABNORMAL) BASIC METABOLIC PANEL (01/06/2022 11:37 AM CDT) SODIUM S/P/B 139 136 - 145 MMOL/L 01/06/2022 8:43 PM CDT [facility] POTASSIUM S/P/B 3.8 3.5 - 5.1 MMOL/L 01/06/2022 8:43 PM CDT [facility] CHLORIDE S/P/B 105 98 - 107 MMOL/L 01/06/2022 8:43 PM CDT [facility] CO2 32.4(H) 21 - 32 MMOL/L 01/06/2022 8:43 PM CDT [facility] GLUCOSE 114(H) 70 - 99 MG/DL 01/06/2022 8:43 PM CDT [facility] BUN 11 7 - 18 MG/DL 01/06/2022 8:43 PM CDT [facility] CREATININE S/P/B 0.57 0.55 - 1.02 MG/DL 01/06/2022 8:43 PM CDT [facility] CALCIUM S/P/B 8.9 8.4 - 10.5 MG/DL 01/06/2022 8:43 PM CDT [facility] ANION GAP 1.6(L) 5 - 15 MMOL/L 01/06/2022 8:43 PM CDT [facility] Comment:REFERENCE RANGE NOT ESTABLISHED OSMOLALITY (CALC) 288 MOSM/KG 022 8:43 PM CDT [facility] Comment:REFERENCE RANGE NOT ESTABLISHED GFR ESTIMATE >90 >90 ML/MIN/1. 73 M2 01/06/2022 8:43 PM CDT [facility] GFR NOTES GFR REFERENCE S: 01/06/2022 8:43 PM CDT [facility] Comment: THE ESTIMATED GFR IS CALCULATED USING THE 2020 CKD-EPI EQUATION. THE FOLLOWING CATEGORIES FOR GRADING RENAL FUNCTION ARE RECOMMENDED BY THE INTERNATIONAL SOCIETY OF NEPHROLOGY (KDIGO 2012 CLINICAL PRACTICE GUIDELINE). G1,NORMAL OR HIGH: >89 ml/min/1.73 m2 G2,MILDLY DECREASED: 60-89 ml/min/1.73 m2 G3A,MILDLY TO MODERATELY DECREASED: 45-59 ml/min/1.73 m2 G3B,MODERATELY TO SEVERELY DECREASED: 30-44 ml/min/1.73 m2 G4,SEVERELY DECREASED: 15-29 ml/min/1.73 m2 G5,KIDNEY FAILURE: <15 ml/min/1.73 m2 01/06/2022 11:3 7 AM CDT Yamil Bautista MD LABORATORY Final Result -[facility] [address] [place] [address], [place] [phone] * PAP SMEAR WITH HPV (03/26/2020) 03/26/2020 [facility] [employer] [facility] Scanned SCANNING Final Resu lt * XR LUMB SPINE 3V (12/03/2017 9:03 AM CDT) Only the most recent of2 resultswithin the time period is included. Anatomical Region Laterality Modality Spine Radiographic Jennifer ging 12/03/2017 9:03 AM CDT Impressions 12/03/2017 9:04 AM CDT =====IMPRESSION:===== No acute findings. Minimal lumbar spondylosis and scoliosis. Narrative 12/03/2017 9:04 AM CDT Exam date/time: 12/03/2017 9:03 AM Examination: Lumbar Spine 3 views Reason For Exam: Sciatica . Low back pain with right leg pain. Comparison: None. Findings: Minimal scoliosis with slight rotation toward the right in the upper lumbar spine. Straightening of lumbar lordosis. No intervertebral subluxation. No compression deformities or significant disc space narrowing. Mild facet joint degenerative changes. Visualized sacroiliac joints are unremarkable. Procedure Note Clarence Swenson MD - 12/03/2017 Exam date/time: 12/03/2017 9:03 AM Examination: Lumbar Spine 3 views Reason For Exam: Sciatica . Low back pain with right leg pain. Comparison: None. Findings: Minimal scoliosis with slight rotation toward the right inthe upper lumbar spine. Straightening of lumbar lordosis. No intervertebral subluxation. No compression deformities or significant disc space narrowing. Mild facet joint degenerative changes. Visualized sacroiliac joints are unremarkable. =====IMPRESSION:===== No acute findings. Minimal lumbar spondylosis and scoliosis. us Cynthia Abrams DISTRICT GAUGER GENERAL IMAGING Final Result * IMAGE GENERIC (12/03/2017 8:30 AM CDT) Anatomical Region Laterality Modality Other 12/03/2017 8:30 AM CDT 12/03/2017 8:30 AM CDT Narrative 12/03/2017 9:06 AM CDT Exam date/time: 12/03/2017 9:03 AM Examination: Lumbar Spine 3 views Reason For Exam: Sciatica . Low back pain with right leg pain. Comparison: None. Findings: Minimal scoliosis with slight rotation toward the right in the upper lumbar spine. Straightening of lumbar lordosis. No intervertebral subluxation. No compression deformities or significant disc space narrowing. Mild facet joint degenerative changes. Visualized sacroiliac joints are unremarkable. =====IMPRESSION:===== No acute findings. Minimal lumbar spondylosis and scoliosis. Procedure Note Md Generic Conversion, - 03/01/2018 Exam date/time: 12/03/2017 9:03 AM Examination: Lumbar Spine 3 views Reason For Exam: Sciatica . Low back pain with right leg pain. Comparison: None. Findings: Minimal scoliosis with slight rotation toward the right inthe upper lumbar spine. Straightening of lumbar lordosis. No intervertebral subluxation. No compression deformities or significant disc space narrowing. Mild facet joint degenerative changes. Visualized sacroiliac joints are unremarkable. =====IMPRESSION:===== No acute findings. Minimal lumbar spondylosis and scoliosis. Cynthia Abrams DISTRICT GAUGER SCANNING Final Result * [facility] QU[facility] (SERUM)-CHORIONIC GONADOTROPIN (11/11/2016 10:08 AM CDT) Only the most recent of2 resultswithin the time period is included. HCG QUANTITATIVE 98879 mIU/mL [facility] TO EPIC CONVERSION Comment: Result Comment: WEEKS OF REFERENCE RANGES non- female < or = 4 3 5 - 72 4 10 - 708 5 217 - 8,245 6 152 - 32,177 7 4,059 - 153,767 8 31,366 - 149,094 9 59,109 - 135,901 10 44,186 - 170,409 12 27,107 - 201,615 14 24,302 - 93,646 15 12,540 - 69,747 16 8,904 - 55,332 17 8,240 - 51,793 18 9,649 - 55,271 11/11/2016 10:0 8 AM CDT 11/11/2016 10:08 AM CDT Narrative [facility] TO EPIC CONVERSION - 11/11/2016 9:37 PM CDT Result Communication: Call patient with results us Esperanza Ames NP LABORATORY Final Result [facility] TO EPIC CONVERSION * (ABNORMAL) URINALYSIS WI REFLEX TO CULTURE (07/06/2016 2:16 PM CDT) Only the most recent of2 resultswithin the time period is included. SPECIMEN TYPE URINE CLEAN CATCH [facility] TO EPIC CONVERSION COLOR (U) STRAW [facility] T O EPIC CONVERSION TRANSPARENCY CLEAR [facility] P TO EPIC CONVERSION SPECIFIC GRAVITY (U) 1.001 1.001 - 1.030 [facility] TO EPIC CONVERSION U PH 7.0 5.0 - 9.0 [facility] T O EPIC CONVERSION LEUKOCYTES (U) LARGE(A) NEG [facility] OUP TO EPIC CONVERSION NITRITES NEGATIVE NEG [facility] T O EPIC CONVERSION PROTEIN (U) NEGATIVE <30 MG/DL [facility] TO EPIC CONVERSION GLUCOSE NEGATIVE NEG MG/DL [facility] T O EPIC CONVERSION KETONES MG/DL (U) NEGATIVE NEG MG/DL [facility] TO EPIC CONVERSION UROBILINOGEN NEGATIVE NEG MG/DL [facility] P TO EPIC CONVERSION BILIRUBIN (U) NEGATIVE NEG MG/DL [facility] UP TO EPIC CONVERSION BLOOD (U) SMALL(A) NEG [facility] T O EPIC CONVERSION REFLEX URINE CULTURE: SPECIMEN SETUP FOR CULTURE [facility] TO EPIC CONVERSION SQUAMOUS EPITHELIALS MODERATE /LPF [facility] TO EPIC CONVERSION RBC/HPF <1 <6 /HPF [facility] T O EPIC CONVERSION WBC 1 <6 /HPF [facility] T O EPIC CONVERSION 07/06/2016 2:16 PM CDT 07/06/2016 2:16 PM CDT Narrative [facility] TO EPIC CONVERSION - 07/06/2016 11:10 PM CDT Result Communication: Mail Results to Patient Esperanza Caputoich DISTRICT GAUGER URINE ORDERABLES Final Result Performing Organization Address [facility] de Phone Number [facility] TO EPIC CONVERSION * CULTURE URINE (07/06/2016 2:16 PM CDT) Only the most recent of2 resultswithin the time period is included. CULTURE URINE SPECIMEN DESCRIPTION - URINE CLEAN CATCH SPECIAL REQUESTS - NO SPECIAL REQUEST CULTURE - POLYMICROBIAL GROWTH CONSISTENT WITH NORMAL GENITAL AKHIL. SUSCEPTIBILITIES NOT CULTURE - ROUTINELY PERFORMED. REPORT STATUS - FINAL 07/09/2016 [facility] TO EPIC CONVERSION 07/06/2016 2:16 PM CDT 07/06/2016 2:16 PM CDT Narrative [facility] TO EPIC CONVERSION - 07/09/2016 8:11 AM CDT Result Communication: No patient communication needed at this time Esperanza Caputoich [facility] [employer] - GENERAL ORDERABL ES Final Result Performing Organization Address [facility] de Phone Number [facility] TO EPIC CONVERSION * (ABNORMAL) COMPREHENSIVE METABOLIC PNL W DBIL (07/06/2016 10:01 AM CDT) Only the most recent of2 resultswithin the time period is included. GLUCOSE 91 70 - 99 mg/dL [facility] TO EPIC CONVERSION BUN 7(L) 8 - 23 mg/dL [facility] TO EPIC CONVERSION CREATININE S/P/B 0.46(L) 0.60 - 1.10 mg/dL [facility] TO EPIC CONVERSION SODIUM S/P/B 140 136 - 145 mmol/L [facility] TO EPIC CONVERSION POTASSIUM S/P/B 4.4 3.5 - 5.1 mmol/L [facility] TO EPIC CONVERSION CHLORIDE S/P/B 103 98 - 107 mmol/L [facility] TO EPIC CONVERSION CO2 26 22 - 29 mmol/L [facility] TO EPIC CONVERSION ANION GAP 15 8 - 20 [facility] T O EPIC CONVERSION CALCIUM S/P/B 9.5 8.6 - 10.2 mg/dL [facility] TO EPIC CONVERSION BILIRUBIN TOTAL S/P/B 0.5 0.2 - 1.2 mg/dL [facility] TO EPIC CONVERSION BILIRUBIN DIRECT S/P/B <0.20 0.0 - 0.3 mg/dL [facility] TO EPIC CONVERSION BILIRUBIN INDIRECT S/P/B NOT CALCULATED 0.0 - 0.9 mg/dL [facility] TO EPIC CONVERSION TOTAL PROTEIN S/P/B 7.7 6.4 - 8.3 g/dL [facility] TO EPIC CONVERSION ALBUMIN S/P/B 4.7 3.5 - 5.2 g/dL [facility] TO EPIC CONVERSION AST 18 0 - 32 U/L [facility] TO EPIC CONVERSION ALT 7 0 - 33 U/L [facility] TO EPIC CONVERSION ALKALINE PHOSPHATASE S/P/B 52 35 - 104 U/L [facility] TO EPIC CONVERSION A/G RATIO 1.6 1.0 - 2.0 [facility] TO EPIC CONVERSION GFR ESTIMATE >60 >60 mL/min/1 .73m'2 [facility] TO EPIC CONVERSION EGFR AFR. AMER. >60 NOTE: eGFR is not calculated for patients <18 years of age. This is an estimated GFR (CKD EPI) and should not be used for calculating drug doses. >60 mL/min/1 .73m'2 [facility] CONVERSION GLOBULIN 3.0 2.3 - 3.6 g/dL [facility] CONVERSION 07/06/2016 10:0 1 AM CDT 07/06/2016 10:01 AM CDT Narrative [facility] CONVERSION - 07/06/2016 11:07 PM CDT Result Communication: Mail Results to Patient Esperanza Ames NP LABORATORY Final Result Performing Organization Address City/State/[facility] Co de Phone Number [facility] CONVERSION Visit Diagnoses Diagnosis Start Date Encounter for other specified special examinations 07/06/2016 Irregular menstruation Irregular menstrual cycle 11/11/2016 Sciatica 12/03/2017 Health care maintenance Unspecified general medical examination 03/02/2019 Health care maintenance Unspecified general medical examination 03/02/2019 Vertigo Dizziness and giddiness 03/02/2019 Vertigo Dizziness and giddiness 03/13/2019 Viral upper respiratory tract infection Acute upper respiratory infections of unspecified site 07/06/2019 Low serum vitamin B12 01/06/2022 Vertigo Dizziness and giddiness 01/06/2022 Overweight (BMI 25.0-29.9) Overweight 01/06/2022 Plantar fasciitis, bilateral Plantar fascial fibromatosis 01/06/2022 Low serum vitamin B12 01/13/2022 Vertigo Dizziness and giddiness 01/13/2022 Low serum vitamin B12 01/13/2022 Vertigo Dizziness and giddiness 01/13/2022 Annual physical exam Routine general medical examination at a health care facility 02/19/2022 Influenza vaccination declined Vaccination not carried out because of patient refusal 02/19/2022 BMI 25.0-25.9,adult Body Mass Index 25.0-25.9, adult 02/19/2022 Dizziness Dizziness and giddiness 03/04/2022 Acute intractable headache, unspecified headache type 03/04/2022 Annual physical exam Routine general medical examination at a health care facility 08/31/2023 Establishing care with new doctor, encounter for Other reasons for seeking consultation 08/31/2023 General medical exam Unspecified general medical examination 08/31/2023 Screening for diabetes mellitus 08/31/2023 Screening for hyperlipidemia Screening for lipoid disorders 08/31/2023 Screening for hypothyroidism Screening for thyroid disorder 08/31/2023 Encounter for hepatitis C screening test for low risk patient 08/31/2023 Low serum vitamin B12 08/31/2023 Gastroesophageal reflux disease without esophagitis Esophageal reflux 02/03/2024 Plantar fasciitis Plantar fascial fibromatosis 08/08/2024 Annual physical exam Routine general medical examination at a health care facility 09/05/2024 Establishing care with new doctor, encounter for Other reasons for seeking consultation 09/05/2024 General medical exam Unspecified general medical examination 09/05/2024 Screening for hyperlipidemia Screening for lipoid disorders 09/05/2024 Screening for hypothyroidism Screening for thyroid disorder 09/05/2024 Screening for diabetes mellitus 09/05/2024 Encounter for hepatitis C screening test for low risk patient 09/05/2024 Prediabetes Other abnormal glucose 09/13/2024 Annual physical exam Routine general medical examination at a health care facility 09/13/2024 General medical exam Unspecified general medical examination 09/13/2024 Drug therapy Encounter for long-term (current) use of other medications 09/13/2024 Gastroesophageal reflux disease without esophagitis Esophageal reflux 09/13/2024 Encounter for screening mammogram for malignant neoplasm of breast Other screening mammogram 09/13/2024 Vitamin D deficiency Unspecified vitamin D deficiency 09/13/2024 Plantar fasciitis Plantar fascial fibromatosis 09/13/2024 Prediabetes Other abnormal glucose 09/13/2024 Continuous leakage of urine Continuous leakage 09/13/2024 Urinary incontinence Unspecified urinary incontinence 09/20/2024 Vertigo Dizziness and giddiness 10/11/2024 Urinary incontinence Unspecified urinary incontinence 10/30/2024 Iron deficiency anemia, unspecified iron deficiency anemia type 01/25/2025 Drug therapy Encounter for long-term (current) use of other medications 01/25/2025 Encounter for screening mammogram for malignant neoplasm of breast Other screening mammogram 01/25/2025 Menorrhagia with regular cycle Excessive or frequent menstruation 01/30/2025 Drug therapy Encounter for long-term (current) use of other medications 01/30/2025 Annual physical exam Routine general medical examination at a health care facility 01/30/2025 General medical exam Unspecified general medical examination 01/30/2025 Prediabetes Other abnormal glucose 01/30/2025 Care Teams Export Sales Manager Relationship Specialty Start Date End Date Ricardo Paulino MD [address] [address] PCP - General INTERNAL MEDICINE 09/21/22
--- OUTSIDE RECORDS SUMMARY | 2025-03-13 00:54 | XMS_ITS | Encounter Summary ---
Author Organization [facility] Address [address] [place] [id number] Care Team Providers Care Staff Editor Name Role Phone Ricardo Paulino MD Primary Care Provider [phone] Encounter Details Date Type Department Care Team (Late st Contact Info) Description 09/02/2023 Euro[employer] Message Enc [facility] - [address] [place] [address] [employer], [facility] Provider lab results Social History Tobacco Use Types Packs/Day [...] on filedocumented in this encounter Care Teams Staff Editor Relationship Specialty Start Date End Date Ricardo Paulino MD [address] [facility] [address] [place] [address] PCP - General INTERNAL MEDICINE 09/21/22 documented as of this encounter
[2025-03-13 08:30] VITALS: BMI 26.6
[2025-03-13 08:50] VITALS: BP 127/81; PULSE 92; RESP 16; TEMP 36.7; O2SAT 99
[2025-03-13] MEDS: LACTATED RINGERS 1,000 ML 30 ML IV CONT (08:50)
[2025-03-13] MEDS: ACETAMINOPHEN 500 MG TABLET 1000 MG PO (08:55)
[2025-03-13 09:26] LABS: BEDSIDEPREGUCG Negative (Negative)
--- NOTE | 2025-03-13 09:40 | WPDHPUPDATE1 ---
History and Physical Update Update Date/Time: 03/13/25 09:40 History and Physical has been reviewed, including an updated exam of the patient. There are NO changes in the patient's condition. Risks, benefits, and alternatives have been discussed and questions answered. Patient agrees to proceed with procedure.
--- NOTE | 2025-03-13 09:46 | P.PNAN_ITS ---
Anes - Initial Pre Proc Eval Procedure: Operation Date: 03/13/25 10:15 Proposed Procedures p Hysteroscopy Dilation and Curettage Melany Endometrial Ablation - Eric Cutler MD Date/Time: 03/13/25 09:46 Surgeon: Eric Cutler MD Pre Op Diagnosis: abnormal uterine bleeding Patient Data Age: 39 Gender: F Height: 1.68 m Weight: 74.85 kg Last Vital Signs Temp 98.1 F 03/13/25 08:50 Pulse 92 03/13/25 08:50 Resp 16 03/13/25 08:50 BP 127/81 03/13/25 08:50 Pulse Ox 99 03/13/25 08:50 O2 Del Method Room Air 03/13/25 08:50 Allergies Allergy/AdvReac Type Severity Reaction Status Date / Time No Known Allergies Allergy Unknown Other Verified 03/13/25 09:23 Home Medications ?Medication ?Instructions ?Recorded ?Confirmed ?Type ferrous sulfate 325 mg (65 mg 325 mg PO DAILY 02/09/25 03/06/25 History iron) tablet (FeroSul) norethindrone (contraceptive) 0.35 0.35 mg PO DAILY #8 4 tabs 02/28/25 03/06/25 Rx mg tablet (Gudelia) Laboratory Tests 03/13/25 08:40 POC Urine HCG, Qual Negative (Negative) Patient hx anesthesia problems: none Family hx anesthesia problems: none Results Review: All pre-operative results and documents have been reviewed as part of the pre- operative evaluation. [facility] Past Medical History Medical History Abnormal 24-hour urinary cortisol measurement Surgical History Surgical History History of hysteroscopy D & C Hx of bilateral salpingectomy 05/08/2022- laparoscopic bilateral salpingectomy- sterilization - Family History Family History Father Hypertension Cerebrovascular accident Social History Social History Smoking status: Never smoker Alcohol intake: never Substance use: never Substance use type: does not use Living arrangements: with family Additional living arrangements comments: spouse Occupation/Education: 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 Gender identity (if verbalized by the patient): Female Sexual Orientation (if Verbalized by the Patient): Straight or Heterosexual Spiritual care concerns: No Anes - Eval Final PreProcedure Day of Procedure 03/13/25 09:46 Patient weight: overweight Lungs: normal air movement Airway: Mallampati scale class II Neurological: alert and oriented Last oral intake: >/= 8 hours ASA classification: II Emergent: no Anesthetic plan: proceed Anesthesia type and monitoring: general GIVS and standard monitoring Results Review: All pre-operative results and documents have been reviewed as part of the pre- operative evaluation. Anemia, overall good functional status, no cp or sob w walking 1-2 fos. Informed Consent: The patient's anesthetic plan and its attendant risks and benefits were discussed with the patient/family/POA. Questions were solicited and answers provided to the satisfaction of the patient/family/POA.
--- NOTE | 2025-03-13 10:21 | S_PTH ---
PATIENT: Reina Avery V LOC: [facility] U#:[id number] AGE/SX: 39/F ROOM: RE03/13/[address]: Eric Cutler MD : [id number] BED: DIS: 03/13/2025 SPEC #: [id number] RECD: 03/13/25 11:46 STATUS: KLEVER REQ #: [id number] MANOJ: 03/13/25 10:[address]: Eric Cutler DEPT: [facility] Surgical RECD BY: Boo Magana ENTERED: 03/13/25 11:47 SP TYPE: Surgical OTHR DR: Ricardo Paulino, Tissues: A - Endometrial Curettings Procedures: Hematoxylin and Eosin Stain Gross and Microscopic Level 4
--- NOTE | 2025-03-13 10:25 | P.OP_ITS ---
Procedure Note - Detailed Date of Procedure 03/13/25 Pre-op Diagnosis abnormal uterine bleeding Post-op Diagnosis Same Procedure Performed hysteroscopy dilation & curettage endometrial ablation Surgeon Eric Cutler MD Anesthesia General Indications abnormal uterine bleeding Findings globally thickened intrauterine cavity. Normal tubal ostia bilaterally Description of Procedure Reina Avery presents for the above procedure. She was counseled as to the indications, risks, benefits, and alternatives to surgery, with the risks including bleeding, infection, damage to surrounding organs, VTE, and complications of anesthesia. Her verbal and written consent was obtained. PROCEDURE: The patient was taken to the OR and general anesthesia induced. She was prepped and draped in Maximino stirrups with support of the back and bilateral lower extremities. I/O catheterization performed of the bladder. The above findings were noted. Infiltration with 1% lidocaine at the 3 and 9 o'clock cervical positions was performed. A single tooth tenaculum was placed on the anterior lip of the cervix. The uterus sounded to 8cm. The cervix was dilated with sequential Marjorie dilators. Hysteroscopy, using a normal saline me dium, was performed and showed the above findings. Sharp uterine curettage was then performed and tissue placed on Telfa. The Melany device was set to a depth of 5.5 cm. The device was inserted into the uterus and deployed. Good fit was reassured by the device indicator. The cervical balloon was insufflated to ensure a good seal. Uterine integrity test was performed by the Melany device and was successful. The device was then activated. The entire ablation procedure lasted 120 seconds. The cervical balloon was desufflated and the device was removed from the uterus. The hysteroscope was re-introduced to ensure adequate tissue ablation. The tenaculum was removed and hemostasis was observed. The patient tolerated the procedure well. Sponge, lap, and needle counts were correct. The patient had SCD's on throughout the case for VTE prophylaxis. The patient was taken to the recovery room in stable condition. Estimated Blood Loss 5 Drains No Packing No Pathology Yes (endometrial curettings ) Complications No immediate complications Condition Stable Disposition PACU [facility] Billing Surgery - Charge Forward: Surgery Billing
[2025-03-13 10:29] VITALS: BP 132/87; PULSE 80; RESP 16; O2SAT 98
[2025-03-13 11:00] VITALS: BP 150/77; PULSE 62; RESP 16
[2025-03-13 11:29] VITALS: BP 157/81; PULSE 59; RESP 16
--- NOTE | 2025-03-13 11:38 | SUR.PHASEII ---
1130: Patient ready for dc. waiting on ride.
== END 2025-03-13 11:52 | disposition home or self-care (01) ==
PROVIDERS: PCP Internal Medicine; Visit Provider Student in an Organized Health Care Education/Training Program
PROC: 0U5B8ZZ Destruction of Endometrium, Via Natural or Artificial Opening Endoscopic (ICD-10-PCS; CPT 58563; principal; 2025-03-13 10:15)
DX: N93.9 Abnormal uterine and vaginal bleeding, unspecified (principal); Z98.51 Tubal ligation status
CPT/HCPCS: 58563; 88305; A9270; J2250; J2704; J3010; J7120